=== PATIENT | female | born 1990 | race African-American/Black ===

== ENCOUNTER 2018-01-07 13:55 | Inpatient (IN) | payer OTHER ==
--- NOTE | 2018-01-07 14:19 | PDOC ---
Rapid Medical Evaluation Chief Complaint: Pain Time Seen by Provider: 01/07/18 14:18 Medical Evaluation: Allergies Allergy/AdvReac Type Severity Reaction Status Date / Time No Known Allergies Allergy Verified 01/07/18 14:18 01/07/18 14:18 I have performed a brief in-person evaluation of this patient. The patient presents with a chief complaint of: sent by [facility], ectopic seen on US Pertinent physical exam findings: tendernses to R lower abdomen I have ordered the following: labs, US The patient will proceed to the ED for further evaluation. Discharge Disposition - Diagnosis Ectopic - Referrals Referrals: Tessie Borrego [Primary Care Provider] - - Patient Instructions - Post Discharge Activity
[2018-01-07 14:20] VITALS: BMI 26.1
--- NOTE | 2018-01-07 14:43 | PDOC ---
History of Present Illness <Good Hartman - Last Filed: 01/07/18 21:13> - History of Present Illness Initial Comments: 01/07/18 14:43 27 year old female presents to our ED this afternoon after a TV[facility] at [facility] in [place] showed a possible ectopic . Patient notes her LMP was in early October 2017, however it was only one day so she is uncertain of how her gestational age. Patient has had no care and notes she is supposed to be taking Fe pills for her anemia however she is non- adherent. Patient denies any vaginal bleeding, abdominal cramping, fevers/ chills. Patient states she wishes to have more children. NKDA Surgical Social: current 1/2 ppd, denies alcohol, denies recreational drugs 01/07/18 14:55 01/07/18 15:00 <Michell Narayan - Last Filed: 01/08/18 09:09> - General Chief Complaint: Pain Stated Complaint: SENT BY PCP Time Seen by Provider: 01/07/18 14:18 Past History <Good Hartman - Last Filed: 01/07/18 21:13> - Past Medical History COPD: No - Suicide/Smoking/Psychosocial Hx Smoking History: Former smoker Have you smoked in the past 12 months: Yes If you are a former smoker, when did you quit?: 2018 Information on smoking cessation initiated: No <Michell Narayan - Last Filed: 01/08/18 09:09> - Past Medical History Allergies/Adverse Reactions: Allergies Allergy/AdvReac Type Severity Reaction Status Date / Time No Known Allergies Allergy Verified 01/07/18 14:18 Home Medications: Ambulatory Orders Ibuprofen [Motrin -] 600 mg PO QID #28 tablet 01/08/18 *Physical Exam - Vital Signs Last Vital Signs Temp Pulse Resp BP Pulse Ox 98.2 F 78 18 102/49 98 01/07/18 14:18 01/07/18 21:07 01/07/18 21:07 01/07/18 21:07 01/07/18 21:07 <Good aHrtman - Last Filed: 01/07/18 21:13> - Vital Signs Last Vital Signs Temp Pulse Resp BP Pulse Ox 98.2 F 89 18 125/67 01/07/18 14:18 01/07/18 14:18 01/07/18 14:18 01/07/18 14:18 - Physical Exam Comments: 01/07/18 15:03 GENERAL: Awake, alert, and fully oriented, in no acute distress HEAD: No signs of trauma EYES: PERRLA, EOMI, sclera anicteric, conjunctiva clear ENT: Auricles normal inspection, hearing grossly normal, nares patent, oropharynx clear without exudates. Moist mucosa NECK: Nontender, no stepoffs, Normal ROM, supple, no lymphadenopathy, JVD, or masses LUNGS: Breath sounds equal, clear to auscultation bilaterally. No wheezes, and no crackles HEART: Regular rate and rhythm, normal S1 and S2, no murmurs, rubs or gallops ABDOMEN: Soft, nontender, normoactive bowel sounds. No guarding, no rebound. No masses, fundal height in between pubic symphsis and sub-xiphoid EXTREMITIES: Normal range of motion, no edema. No clubbing or cyanosis. No cords, erythema, or tenderness NEUROLOGICAL: Cranial nerves II through XII intact. 5/5 strength and sensation in all extremities, Normal speech, normal gait, normal cerebellar function SKIN: Warm, Dry, normal turgor, no rashes or lesions noted. <Michell Narayan - Last Filed: 01/08/18 09:09> ED Treatment Course - LABORATORY CBC & Chemistry Diagram: 01/07/18 14:55 01/07/18 14:55 - ADDITIONAL ORDERS Additional order review: Laboratory Results 01/07/18 01/07/18 01/07/18 15:30 14:55 14:55 PT with INR 12.70 H INR 1.12 PTT (Actin FS) 34.1 Sodium Potassium Chloride Carbon Dioxide Anion Gap BUN Creatinine Creat Clearance w eGFR Random Glucose Calcium Total Bilirubin AST ALT Alkaline Phosphatase Total Protein Albumin Beta HCG, Quant 9083.8 Blood Type O POSITIVE Antibody Screen Negative 01/07/18 14:55 PT with INR INR PTT (Actin FS) Sodium 141 Potassium 3.8 Chloride 106 Carbon Dioxide 26 Anion Gap 9 BUN 13 Creatinine 0.6 Creat Clearance w eGFR > 60 Random Glucose 87 Calcium 9.3 Total Bilirubin 0.3 AST 13 L ALT 21 Alkaline Phosphatase 82 Total Protein 7.5 Albumin 4.1 Beta HCG, Quant Blood Type Antibody Screen 01/07/18 14:55 RBC 4.88 MCV 68.5 L MCHC 34.1 RDW 15.3 MPV 8.4 Neutrophils % 62.1 Lymphocytes % 31.2 Monocytes % 5.2 Eosinophils % 1.1 Basophils % 0.4 <Good Hartman - Last Filed: 01/07/18 21:13> - LABORATORY CBC & Chemistry Diagram: 01/08/18 07:30 01/07/18 14:55 <Michell Narayan - Last Filed: 01/08/18 09:09> Medical Decision Making - Medical Decision Making 01/07/18 14:58 27 year old non-toxic appearing female presents with r/o ectopic . At presentation patient hemodynamically stable, no active c/o abdominal pain. Will obtain TVUS, Beta-HCG, UA/Urine culture. Reasess. 01/07/18 14:58 Case d/w SIGH[facility] @ [facility]. patient presented for elective at which time she was noted to have ectopic and sent to the ED. 01/07/18 15:04 U/S images from [facility] reviews, Patient counseled extensively on presumptive ectopic diagnosis. 01/07/18 16:26 B-HCG 9,083.8 c/w 3-5 week . 01/07/18 18:12 Patient resting comfortably. TVUS pending. Patient signed out to Dr. Hartman (Resident) and Dr. Kennedy (Attending) - likely disposition is OR. <Michell Narayan - Last Filed: 01/08/18 09:09> *DC/Admit/Observation/Transfer <Good Hartman - Last Filed: 01/07/18 21:13> <Michell Narayan - Last Filed: 01/08/18 09:09> Diagnosis at time of Disposition: Ectopic Qualifiers: Location of ectopic : unspecified location Intrauterine status: without intrauterine Qualified Code(s): O00.90 - Unspecified ectopic without intrauterine - Discharge Dispostion Condition at time of disposition: Good
[2018-01-07] MEDS ORDERED: ASPIRIN 81 MG CHEWABLE TABLETS PO ONE (15:10)
--- NOTE | 2018-01-07 15:10 | PDOC ---
Attending Attestation - Resident Resident Name: Michell Narayan - ED Attending Attestation I have performed the following: I have examined & evaluated the patient, The case was reviewed & discussed with the resident, I agree w/resident's findings & plan, Exceptions are as noted - HPI HPI: 01/07/18 15:08 27y F [id number], unknown lmp presents from [facility] for ectopic pt was noted to have an US c/w ectopic, had orginally presented for elective ab, but was noted to hav an ectopic. pt is otherwise asyptomatic without abd pain, vag bleeding, n /v, dizziness, palpitations. on exam pt well appearing in no distress abd soft nontender compensation expert exam as documented by dr. kisha zheng obtain lab work beta type tvus if +ectopic will dw compensation expert - Physicial Exam PE: 01/09/18 20:28 see above - Medical Decision Making 01/07/18 19:15 pts beta at 9000 awaiting TVUS will sign out to evening team to reeavluate and disposition
[2018-01-07 15:31] LABS: ALBUMIN 4.1 g/dl (3.4-5.0); ALK PHOS 82 U/L (45-117); ANION GAP 9 (8-16); BILIRUBIN,TOTAL 0.3 mg/dL (0.2-1.0); BLOOD UREA NITROGEN 13 mg/dL (7-18); CALCIUM 9.3 mg/dL (8.5-10.1); CHLORIDE 106 mmol/L (98-107); CO2 26 mmol/L (21-32); CREATININE 0.6 mg/dL (0.55-1.02); GLUCOSE,RANDOM 87 mg/dL (74-106); POTASSIUM 3.8 mmol/L (3.5-5.1); SGOT/AST 13 U/L (15-37); SGPT/ALT 21 U/L (12-78); SODIUM 141 mmol/L (136-145); TOT PROT 7.5 g/dl (6.4-8.2)
[2018-01-07 16:04] LABS: BASO % 0.4 % (0-2.0); EOS % 1.1 % (0-4.5); HEMATOCRIT 33.4 % (32.4-45.2); HEMOGLOBIN 11.4 GM/dL (10.7-15.3); LYMPH % 31.2 % (8-40); MCH 23.3 pg (25.7-33.7); MCHC 34.1 g/dl (32.0-36.0); MEAN CELL VOLUME 68.5 fl (80-96); MEAN PLT VOLUME 8.4 fl (7.5-11.1); MONO % 5.2 % (3.8-10.2); NEUT % 62.1 % (42.8-82.8); PLATELET COUNT 305 K/MM3 (134-434); RBC 4.88 M/mm3 (3.60-5.2); RDW 15.3 % (11.6-15.6); WHITE BLOOD COUNT 9.3 K/mm3 (4.0-10.0)
[2018-01-07 16:11] LABS: INR 1.12 (0.82-1.09); PROTHROMBIN TIME (PATIENT) 12.7 SEC (9.98-11.88)
[2018-01-07 16:13] LABS: ACTIVATED PTT 34.1 SECONDS (26.9-34.4)
--- NOTE | 2018-01-07 19:06 | PDOC ---
*Physical Exam - Vital Signs Last Vital Signs Temp Pulse Resp BP Pulse Ox 98.2 F 89 18 125/67 01/07/18 14:18 01/07/18 14:18 01/07/18 14:18 01/07/18 14:18 ED Treatment Course - LABORATORY CBC & Chemistry Diagram: 01/07/18 14:55 01/07/18 14:55 - ADDITIONAL ORDERS Additional order review: Laboratory Results 01/07/18 01/07/18 01/07/18 15:30 14:55 14:55 PT with INR 12.70 H INR 1.12 PTT (Actin FS) 34.1 Sodium Potassium Chloride Carbon Dioxide Anion Gap BUN Creatinine Creat Clearance w eGFR Random Glucose Calcium Total Bilirubin AST ALT Alkaline Phosphatase Total Protein Albumin Beta HCG, Quant 9083.8 Blood Type O POSITIVE Antibody Screen Negative 01/07/18 14:55 PT with INR INR PTT (Actin FS) Sodium 141 Potassium 3.8 Chloride 106 Carbon Dioxide 26 Anion Gap 9 BUN 13 Creatinine 0.6 Creat Clearance w eGFR > 60 Random Glucose 87 Calcium 9.3 Total Bilirubin 0.3 AST 13 L ALT 21 Alkaline Phosphatase 82 Total Protein 7.5 Albumin 4.1 Beta HCG, Quant Blood Type Antibody Screen 01/07/18 14:55 RBC 4.88 MCV 68.5 L MCHC 34.1 RDW 15.3 MPV 8.4 Neutrophils % 62.1 Lymphocytes % 31.2 Monocytes % 5.2 Eosinophils % 1.1 Basophils % 0.4 Medical Decision Making - Medical Decision Making 01/07/18 19:05 Care taken over from Dr. Narayan. 01/07/18 21:35 Patient found to have viable left ectopic within left adnexa. Dr. Gorman (OB pulmonary fellow) consulted who recommends admission and surgery tonight. Patient amenable. Admitting to Dr. Gorman. *DC/Admit/Observation/Transfer Diagnosis at time of Disposition: Ectopic Qualifiers: Location of ectopic : unspecified location Intrauterine status: without intrauterine Qualified Code(s): O00.90 - Unspecified ectopic without intrauterine - Discharge Dispostion Admit: Yes - Referrals Referrals: Tessie oBrrego [Primary Care Provider] - - Patient Instructions - Post Discharge Activity
[2018-01-07] MEDS ORDERED: PROPOFOL 20 ML ONE ×2 (22:10→22:59)
[2018-01-07] MEDS ORDERED: MIDAZOLAM HCL 2 MG/2 ML SINGLE DOSE VIAL ONE (22:10)
[2018-01-07] MEDS ORDERED: ROCURONIUM BROMIDE 50 MG/5 ML VIAL ONE (22:10)
[2018-01-07] MEDS ORDERED: LIDOCAINE HCL/PF 2% SDV 5ML VIAL ONE (22:11)
--- NOTE | 2018-01-07 22:13 | HP ---
Past Medical History - Primary Care Physician PCP:: Raymon Gorman - Admission Chief Complaint: tubal ectopic History of Present Illness: 27 yo f lmp oct 2016 ,for one day, sxually active on no contraception [facility], sono confirmed ectopic , reffered to ER here , which sono shows live left tube, 5 weeks,with heart present, lapraoscopic salpingectomy discussed , risks of infection, bleeding , injury to surrounding tissue, infertility, postop complication and anesthesia risks discussed, informed consent signed History Source: Patient Limitations to Obtaining History: No Limitations - Past Medical History ...: 4 ...Para: 4 - Past Surgical History Hx Myomectomy: No Hx Transabdominal Cerclage: No - Smoking History Smoking history: Former smoker Have you smoked in the past 12 months: Yes If you are a former smoker, when did you quit?: 2018 - Alcohol/Substance Use Hx Alcohol Use: No History of Substance Use: reports: None - Social History History of Recent Travel: No Home Medications - Allergies Allergies/Adverse Reactions: Allergies Allergy/AdvReac Type Severity Reaction Status Date / Time No Known Allergies Allergy Verified 01/07/18 14:18 Review of Systems - Review of Systems Constitutional: reports: No Symptoms Eyes: reports: No Symptoms HENT: reports: No Symptoms Neck: reports: No Symptoms Cardiovascular: reports: No Symptoms Respiratory: reports: No Symptoms Gastrointestinal: reports: No Symptoms Genitourinary: reports: No Symptoms Breasts: reports: No Symptoms Reported Musculoskeletal: reports: No Symptoms Integumentary: reports: No Symptoms Neurological: reports: No Symptoms Endocrine: reports: No Symptoms Hematology/Lymphatic: reports: No Symptoms Psychiatric: reports: No Symptoms Physical Exam-MEDICAL CLAIMS REPRESENTATIVE Vital Signs: Vital Signs Temperature 98.2 F 01/07/18 14:18 Pulse Rate 78 01/07/18 21:07 Respiratory Rate 18 01/07/18 21:07 Blood Pressure 102/49 01/07/18 21:07 O2 Sat by Pulse Oximetry (%) 98 01/07/18 21:07 Constitutional: Yes: Well Nourished, No Distress, Calm Eyes: Yes: WNL, Conjunctiva Clear, EOM Intact HENT: Yes: WNL, Atraumatic, Normocephalic Neck: Yes: WNL, Supple, Trachea Midline Cardiovascular: Yes: WNL, Regular Rate and Rhythm Respiratory: Yes: WNL, Regular, CTA Bilaterally Gastrointestinal: Yes: WNL ...Rectal Exam: Yes: WNL Renal/: Yes: WNL Vaginal Exam: Yes: Normal Cervix: Yes: Normal Uterus: Yes: Normal Adnexa: Tender: Right Breast(s): Yes: WNL Musculoskeletal: Yes: WNL Extremities: Yes: WNL Edema: No Integumentary: Yes: WNL Neurological: Yes: WNL, Alert, Oriented ...Motor Strength: WNL Psychiatric: Yes: WNL, Alert, Oriented Labs: CBC, BMP 01/07/18 14:55 01/07/18 14:55 Assessment/Plan admi. laparoscopic salpingectomy, D&C discussed , rba explained
[2018-01-07] MEDS ORDERED: KETOROLAC TROMETHAMINE 30 MG/1 ML VIAL ONE (22:14)
[2018-01-07] MEDS ORDERED: ONDANSETRON 4 MG/2 ML VIAL ONE ×2 (22:14→23:41)
[2018-01-07] MEDS ORDERED: DEXAMETHASONE SOD PHOSPHATE 4 MG/1 ML VIAL ONE (22:14)
[2018-01-07] MEDS ORDERED: NEOSTIGMINE METHYLSULFATE 0.5 MG/ML - 10 ML MDV ONE (22:15)
[2018-01-07] MEDS ORDERED: GLYCOPYRROLATE 0.2 MG/1 ML VIAL ONE (22:16)
[2018-01-07] MEDS ORDERED: ONDANSETRON 4 MG/2 ML VIAL IVPUSH PRN (22:28)
[2018-01-07] MEDS ORDERED: LACTATED RINGERS SOLUTION 1,000 ML IV SCH (22:30)
[2018-01-07] MEDS ORDERED: ceFAZolin SODIUM 1 GM VIAL IVPB ONE (22:58)
[2018-01-07] MEDS ORDERED: SODIUM CHLORIDE 0.9% P/F 10 ML VIAL IJ ONE (23:00)
[2018-01-07] MEDS ORDERED: ceFAZolin SODIUM 1 GM VIAL ONE (23:00)
[2018-01-07] MEDS ORDERED: SUCCINYLCHOLINE CHLORIDE 200 MG/10 ML VIAL ONE (23:49)
[2018-01-07] MEDS ORDERED: ACETAMINOPHEN 1000 MG/100 ML VIAL (NON FORMULARY) IVPB ONE (23:58)
[2018-01-08] MEDS ORDERED: ONDANSETRON 4 MG/2 ML VIAL IVPUSH PRN (00:01)
[2018-01-08] MEDS ORDERED: IBUPROFEN 800 MG/8 ML IJ IVPB PRN (00:01)
[2018-01-08] MEDS ORDERED: oxyCODONE HCL 5 MG TABLET PO PRN (00:01)
[2018-01-08] MEDS ORDERED: IBUPROFEN 600 MG TABLET (FP) PO PRN (00:01)
[2018-01-08] MEDS ORDERED: ACETAMINOPHEN INJECTION 100 ML IVPB ONE (00:06)
[2018-01-08] MEDS ORDERED: ELECTROLYTE-148 SOLN 1,000 ML IV SCH (00:15)
--- NOTE | 2018-01-08 01:02 | OP ---
DATE OF OPERATION: 01/07/2018 PREOPERATIVE DIAGNOSIS: Left tubal ectopic . POSTOPERATIVE DIAGNOSIS: Left tubal ectopic . Pelvic adhesions. SURGEON: Raymon Gorman M.D. HEARSE DRIVER: Castillo Sweet ANESTHESIA: General. ANESTHESIOLOGIST: ESTIMATED BLOOD LOSS: 20 mL. OPERATION: Patient was taken to operating room and placed in dorsal lithotomy position. Examination under anesthesia revealed external genitalia to be normal. Vagina was normal. Cervix was closed. No lesion. Uterus normal size. Adnexa no masses palpable. Then with the weighted speculum in the vagina, anterior lip of cervix of grasped single loop tenaculum. Uterine cavity was sounded to 8 cm. Cervix was slightly dilated with Hegar dilator, and then uterine cavity was curetted in ordinary fashion with the smooth curet. Small amount of tissue was obtained. Then Hulka was introduced into the uterine cavity and then Doan was inserted. Patient was prepped and draped for endoscopy in dorsal lithotomy position. A small infraumbilical skin incision was made. Veress needle was introduced. No peritoneum was established. A 5-mm trocar was introduced under direct vision, then pneumoperitoneum was established, and 5-mm trocar was reintroduced to the right hypogastric area and then 10 mm to the left hypogastric. Visualization of the upper abdomen showed multiple adhesion bands between the diaphragm and the liver consistent with previous old PID. There was also some bowel adhesions in the right side adherent to the broad ligament. The right tube and ovary were normal. Left ovary was normal. The left tube was curled up behind the user with the large ectopic , adherent to the posterior part of the uterus. Pelvic area several times irrigated and suctioned, and then the tube was dissected from the posterior wall of the uterus with Ligasure bipolar cautery, and then along the mesosalpinx the tube was grasped and cauterized and removed. The ectopic had occupied the whole tube. Then no active bleeding was seen at the site of the procedure, and Endocatch was introduced through the 10-mm trocar and the specimen was removed. Then pelvic cavity began irrigation, no bleeding was seen. A 10-mm trocar was removed, and then the fascia was brought together with an interrupted suture of 0 Vicryl, and then the subcutaneous fat with interrupted suture of the 2-0 Vicryl, and umbilical area was closed with 2-0 Vicryl, and skin was closed with 4-0 Biosyn interrupted mattress suture. Patient tolerated procedure well, left the OR in good condition. Berna [id number]
[2018-01-08 05:56] VITALS: TEMP 98.4
[2018-01-08 08:00] LABS: HEMATOCRIT 32.6 % (32.4-45.2); HEMOGLOBIN 10.9 GM/dL (10.7-15.3); MCH 22.8 pg (25.7-33.7); MCHC 33.4 g/dl (32.0-36.0); MEAN CELL VOLUME 68.2 fl (80-96); MEAN PLT VOLUME 8.4 fl (7.5-11.1); PLATELET COUNT 284 K/MM3 (134-434); RBC 4.78 M/mm3 (3.60-5.2); RDW 15.6 % (11.6-15.6); WHITE BLOOD COUNT 9.9 K/mm3 (4.0-10.0)
--- NOTE | 2018-01-08 08:10 | PN ---
Progress Note (short form) - Note Progress Note: pod 0 , s/p LT salpingectomy, has mild incisional pain CBC, BMP 01/07/18 14:55 Last Vital Signs Temp Pulse Resp BP Pulse Ox 98.4 F 72 18 118/79 99 01/08/18 05:56 01/08/18 05:56 01/08/18 05:56 01/08/18 05:56 01/08/18 02:15 abdomen soft, no distension, no cva incisions dry, rebecca no vaginal bleeding plan d/c home , rtc 2 weeks
--- NOTE | 2018-01-08 09:24 | PN ---
Progress Note (short form) - Note Progress Note: ANESTEHESIOLOGY POST-OP CHECK 27F s/p lap salpingectomy POD #1. No complaints. pain 4/10 and tolerable. Denies N/V. Vital Signs Temperature 98.4 F 01/08/18 05:56 Pulse Rate 72 01/08/18 05:56 Respiratory Rate 18 01/08/18 05:56 Blood Pressure 118/79 01/08/18 05:56 O2 Sat by Pulse Oximetry (%) 99 01/08/18 02:15 Active Medications Parenteral Electrolytes (Plasma-Lyte 148 -) 1,000 mls @ 125 mls/hr IV ASDIR ELIAN Last Admin: 01/08/18 00:34 Dose: 125 mls/hr Ibuprofen (Motrin -) 600 mg PO Q6H PRN PRN Reason: FEVER Ibuprofen (Caldolor Injection -) 800 mg IVPB Q6H PRN PRN Reason: PAIN LEVEL 1-5 Last Admin: 01/08/18 01:49 Dose: 800 mg Ondansetron HCl (Zofran Injection) 4 mg IVPUSH Q6H PRN PRN Reason: NAUSEA AND/OR VOMITING Ondansetron HCl (Zofran Injection) 4 mg IVPUSH Q6H PRN PRN Reason: NAUSEA Oxycodone HCl (Roxicodone -) 10 mg PO Q4H PRN PRN Reason: PAIN LEVEL 6-10 Gen: Awake, alert, NAD No apparent anesthesia complications. Continue TROPHY ASSEMBLER until fully tolerating PO diet. To see Dr Bucio. Continue management as per primary team.
[2018-01-08 10:48] VITALS: BP 127/72; PULSE 83
--- NOTE | 2018-01-11 10:42 | PATH ---
Surgical Pathology Report Patient Name: BETTY MCKEON [facility]. Rec. #: [id number] /Age/Gender: 1990 (Age: 27) / F Account: [id number] Location: [facility] OBS/RD SCIENTIST Taken: 01/07/2018 Received: 01/08/2018 Reported: 01/11/2018 Physicians: Raymon Gorman M.D. Specimen(s) Received A: ENDOMETRIAL CURETTINGS B: LEFT FALLOPIAN TUBE Clinical History Ectopic Final Diagnosis A. ENDOMETRIAL CURETTINGS, DILATION AND CURETTAGE: GESTATIONAL ENDOMETRIUM. B. FALLOPIAN TUBE, LEFT, LAPAROSCOPIC SALPINGECTOMY: CHORIONIC VILLI IN A BACKGROUND OF HEMORRHAGE PRESENT WITHIN THE FALLOPIAN TUBE, CONSISTENT WITH ECTOPIC . Electronically Signed Jocelyn West M.D. Gross Description A. Received in formalin labelled "endometrial curetting" is a 2.5 x 2.5 x 0.7 cm aggregate of hemorrhagic and mucinous material. Totally submitted in 2 cassettes. B. Received in formalin labelled "left fallopian tube" is a 5 cm long by up to 2.2 cm in diameter portion of fallopian tube. Cut surface reveals an apparent gestational sac measuring 2.0 cm greatest dimension, is consistent with ectopic . A veterans service representative section is submitted one cassette. [facility]/01/08/2018 [facility]/01/08/2018
== END 2018-01-08 13:20 | disposition home or self-care (01) | DRG 545 ==
LOC: JER 13:55 → JERBED 21:40 → J3W 01-08 00:30
PROVIDERS: ADMIT Obstetrics & Gynecology; ATTEND Obstetrics & Gynecology
PROC: 0FN04ZZ Release Liver, Percutaneous Endoscopic Approach (ICD-10-PCS; 2018-01-07)
PROC: 10T24ZZ Resection of Products of Conception, Ectopic, Percutaneous Endoscopic Approach (ICD-10-PCS; principal; 2018-01-07 10:00)
PROC: 0UT64ZZ Resection of Left Fallopian Tube, Percutaneous Endoscopic Approach (ICD-10-PCS; 2018-01-07 22:45)
DX: O00.102 Left tubal pregnancy without intrauterine pregnancy (principal); D64.9 Anemia, unspecified; F17.210 Nicotine dependence, cigarettes, uncomplicated; N73.6 Female pelvic peritoneal adhesions (postinfective); Z3A.01 Less than 8 weeks gestation of pregnancy
CPT/HCPCS: 36415; 76817-TC; 80053; 84702; 85025; 85027; 85610; 85730; 86850; 86900; 86901; 88305-TC; 99282-25; J0131

== ENCOUNTER → 2018-04-25 | Emergency (ER) | payer OTHER ==
[~2018-04-25] MED LIST: FLUCONAZOLE 100 MG TABLET (UD) ONE; FLUCONAZOLE 100 MG TABLET (UD) PO ONE; NAPROXEN 375 MG TABLET (FP) PO ONE; NAPROXEN 500 MG TABLET (FP) ONE; SUMAtriptan SUCCINATE 50 MG TABLET ONE; SUMAtriptan SUCCINATE 50 MG TABLET PO SCH
[2018-04-25 22:15] VITALS: BP 142/78; PULSE 74; TEMP 98.2; BMI 28.7
--- NOTE | 2018-04-26 00:11 | PDOC ---
History of Present Illness - General Chief Complaint: Headache Stated Complaint: DIZZNESS, WEAK Time Seen by Provider: 04/25/18 23:27 History Source: Patient Exam Limitations: No Limitations - History of Present Illness Initial Comments: 04/25/18 23:50 28F with pmh of ectyopic in December 2017 presents with left sided frontal and temporal headache for the past month. Relief with motrin and tylenol but still has the headaches every day, day or night. Light is hurting her eyes. No history of migraines. Last menstrual period April 11. Pain is relieved by massaging the area. 04/26/18 00:16 Denies nausea, vomiting Past History - Past Medical History Allergies/Adverse Reactions: Allergies Allergy/AdvReac Type Severity Reaction Status Date / Time No Known Allergies Allergy Verified 01/07/18 14:18 Home Medications: Ambulatory Orders Ibuprofen [Motrin -] 600 mg PO QID #28 tablet 01/08/18 Sumatriptan Succ/Naproxen Sod [Sumatriptan-Naproxen 85-500 mg] 1 each PO PRN PRN #30 tablet MDD 2 tabs 04/26/18 Anemia: No Asthma: No Cancer: No Cardiac Disorders: No CVA: No COPD: No DVT: No Dementia: No Diabetes: No GI Disorders: No Disorders: Yes (ectopic ) HTN: No Seizures: No Thyroid Disease: No - Surgical History Abdominal Surgery: Yes (Salpingectomy) - Reproductive History (#): 4 Para: 4 - Suicide/Smoking/Psychosocial Hx Smoking History: Never smoked Have you smoked in the past 12 months: Yes Number of Cigarettes Smoked Daily: 2 If you are a former smoker, when did you quit?: 2018 Information on smoking cessation initiated: Yes 'Breaking Loose' booklet given: 04/25/18 Hx Alcohol Use: No Drug/Substance Use Hx: No Substance Use Type: None Review of Systems - Review of Systems Able to Perform ROS?: Yes Is the patient limited Maori proficient: No Constitutional: No: Symptoms Reported HEENTM: Yes: Blurred Vision, Recent change in vision Respiratory: No: Symptoms reported Cardiac (ROS): No: Symptoms Reported ABD/GI: No: Symptoms Reported : No: Symptoms Reported Musculoskeletal: No: Symptoms Reported Integumentary: No: Symptoms Reported Neurological: No: Symptoms reported Endocrine: No: Symptoms Reported Hematologic/Lymphatic: No: Symptoms Reported All Other Systems: Reviewed and Negative *Physical Exam - Vital Signs Last Vital Signs Temp Pulse Resp BP Pulse Ox 98.2 F 74 20 142/78 99 04/25/18 22:12 04/25/18 22:12 04/25/18 22:12 04/25/18 22:12 04/25/18 22:12 - Physical Exam General Appearance: Yes: Nourished, Appropriately Dressed. No: Apparent Distress HEENT: positive: EOMI, ANGELIKA, Normal ENT Inspection Respiratory/Chest: positive: Lungs Clear, Normal Breath Sounds. negative: Chest Tender, Respiratory Distress Cardiovascular: positive: Regular Rhythm, Regular Rate, S1, S2 Gastrointestinal/Abdominal: positive: Normal Bowel Sounds, Flat, Soft. negative : Tender Musculoskeletal: positive: Normal Inspection. negative: CVA Tenderness Medical Decision Making - Medical Decision Making 04/26/18 00:15 Will give Naproxen-Sumatriptan and check UA, Upreg. This is likely new onset migraine 04/26/18 01:23 Feels much better with naproxen-sumatriptan combo. Will dc with script and neuro follow up *DC/Admit/Observation/Transfer Diagnosis at time of Disposition: Migraine - Discharge Dispostion Disposition: HOME Condition at time of disposition: Improved Decision to Admit order: No - Referrals Referrals: Alix Nunez MD [Primary Care Provider] - Josafat Cheatham MD [Staff Physician] - - Patient Instructions Printed Discharge Instructions: Frovatriptan May Offer Relief From Migraine Pain, DI for Migraine Additional Instructions: Follow up with your primary care provider within 2-3 days Come back to the Er for any new, worsening or concerning symptom. Follow up with Dr. Barrios, Neurologist if symptoms persist. production supervisor trainee prescription at your pharmacy and take as directed. - Post Discharge Activity
--- NOTE | 2018-04-26 00:12 | PDOC ---
Attending Attestation - HPI HPI: The patient is a 28 year old female, with a significant PMH of ectopic in December 2017, who presents to the emergency department complaining of intermittent headaches that began approximately 4 weeks ago. The patient states she was driving today when she suddenly experienced photophobia accompanied with tingling to her left hand and dizziness. The patient states she has been having these symptoms for the past 4 weeks and came to the ER for further evaluation. The patient denies chest pain, shortness of breath. Denies fever, chills, nausea, vomit, diarrhea and constipation. Denies dysuria, frequency, urgency and hematuria. Allergies: NKDA Past surgical history: Former smoker (quit in 2018). Denies alcohol and recreational drug use. Social history: None reported PCP:Jenny Nunez Documentation prepared by Gato Shultz, acting as lpn or medical assistant for Lucille Bustamante MD. <Gato Shultz - Last Filed: 04/26/18 01:25> - Resident Resident Name: Rob Kan - ED Attending Attestation I have performed the following: I have examined & evaluated the patient, The case was reviewed & discussed with the resident, I agree w/resident's findings & plan, Exceptions are as noted - HPI HPI: 04/26/18 00:12 28-year-old female presents with 4 weeks of intermittent headaches. She has taken Tylenol and Motrin for headaches. States the nausea is better. - Physicial Exam PE: 04/26/18 01:35 Well-nourished, well-developed 28-year-old female who presents with complaints of vaginal discharge, intermittent headaches times one month, and she had some photophobia today with headache and Head normocephalic/atraumatic. Eyes pupils equal and reactive to light and accommodation, extraocular movements intact. Neck no bruits, no JVD, supple. CVS regular rate and rhythm S1, S2 Lungs clear to auscultation bilaterally Abdomen soft, nontender, nondistended. Extremities full range of motion, no deformity, no tenderness. +candidal infection Skin is warm and dry. Neuro alert and oriented 3, ambulating with ease, no ataxia, no facial droop, no slurred speech - Medical Decision Making 04/26/18 01:50 Headache resolved with medications. She had a complaint of vaginal discharge. Pelvic was done by Dr. Kan and she was found to have vaginal candidiasis which was treated with Diflucan [place] patient already has an appointment on March 28 with her physician for follow- up. She was given a referral to neurology in case her headaches are persistent <Lucille Bustamante - Last Filed: 04/26/18 01:51>
[2018-04-26 00:59] LABS: URINE APPEARANCE CLEAR; URINE BILIRUBIN NEGATIVE (<2.0 mg/dL); URINE COLOR LTYELLOW; URINE GLUCOSE (UA) NEGATIVE (NEGATIVE); URINE KETONE NEGATIVE (NEGATIVE); URINE NITRITE NEGATIVE (NEGATIVE); URINE PROTEIN NEGATIVE (NEGATIVE); URINE UROBILINOGEN NEGATIVE mg/dL (0.2-1.0)
[2018-04-26 01:07] LABS: HCG,QUALITATIVE URINE NEGATIVE; URINE LEUK ESTERASE 2+ (NEGATIVE)
[2018-04-26 01:12] LABS: EPI CELLS RARE /HPF (FEW); URINE MUCUS RARE
== END | disposition home or self-care (01) ==
LOC: JER 22:01
DX: G43.909 Migraine, unspecified, not intractable, without status migrainosus (principal)
CPT/HCPCS: 81003; 81015; 84703; 99281-25

== ENCOUNTER 2018-06-23 22:06 | Emergency (ER) | payer OTHER ==
[2018-06-23 22:11] VITALS: BP 124/88; PULSE 78; TEMP 98; BMI 26.1
--- NOTE | 2018-06-23 23:32 | PDOC ---
Attending Attestation - HPI HPI: 06/24/18 00:45 The patient is a 28-year-old female with past medical history significant for depression, and Ectopic (L. side December 2017) presents to the emergency department with abdominal pain and emesis. The patient reports pain to the R. flank region that radiates to the R. lower abdominal region, which presented a day prior. The patient reports her last drink prior to the episode was a azucena rene, following she went to sleep. The patient states when she woke up she went to the bathroom for a bowel movement, but she ended up having an episode of nonbilious-bloody vomiting. The patient reports her last bowel movement was earlier today, denies melena or hematochezia. Denies any vaginal bleeding. Denies the use of control. The patient reports prior to the ectopic, she didnt have any pain or vaginal bleeding. Allergies: NKA Social history: The patient reports having sexual intercourse with her partner, without the use of condom. The use of tobacco is reported. No alcohol or recreational drug use reported. LMP: 05/29/2018. The patient reports since January shes been having regular cycle. Surgical history: (Salpingectomy) FRONT MAKER: [facility] - Physicial Exam PE: 06/24/18 00:46 GENERAL: Awake, alert, and fully oriented, in no acute distress HEAD: No signs of trauma EYES: PERRLA, EOMI, sclera anicteric, conjunctiva clear ENT: Auricles normal inspection, hearing grossly normal, nares patent, oropharynx clear without exudates. Moist mucosa NECK: Normal ROM, supple, no lymphadenopathy, JVD, or masses LUNGS: Breath sounds equal, clear to auscultation bilaterally. No wheezes, and no crackles HEART: Regular rate and rhythm, normal S1 and S2, no murmurs, rubs or gallops ABDOMEN: Soft, nontender, no CVA, normoactive bowel sounds. No guarding, no rebound. No masses EXTREMITIES: Normal range of motion, no edema. No clubbing or cyanosis. No cords, erythema, or tenderness NEUROLOGICAL: Cranial nerves II through XII grossly intact. Normal speech, ambulated with a steady gait. SKIN: Warm, Dry, normal turgor, no rashes or lesions noted. - Medical Decision Making 06/24/18 00:46 Documentation prepared by Ro Will, acting as medical coordinator pesticide use for Hortencia Gordon DO. <Ro Solis - Last Filed: 06/24/18 00:46> - Resident Resident Name: Vicky Rodriguez - ED Attending Attestation I have performed the following: I have examined & evaluated the patient, The case was reviewed & discussed with the resident, I agree w/resident's findings & plan, Exceptions are as noted - Medical Decision Making 06/23/18 23:32 I, Dr. Hortencia Gordon DO, attest that this document has been prepared under my direction and personally reviewed by me in its entirety. I further attest, that it accurately reflects all work, treatment, procedures and medical decision -making performed by me. 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 pt stable for dc to home with expectant management. n/v resolved. pt feeling better <Hortencia Gordon - Last Filed: 06/24/18 02:19>
--- NOTE | 2018-06-23 23:34 | PDOC ---
History of Present Illness - General Chief Complaint: Pain Stated Complaint: abdominal pain with nausea & vomiting Time Seen by Provider: 06/23/18 23:28 History Source: Patient Exam Limitations: No Limitations - History of Present Illness Initial Comments: 28yo F with depression and previous ectopic in December 2017 presenting with abdominal pain x 1 day. The pain is intermittent, rated 8/10, and described as sharp. Patient endorses a normal appetite, and the pain is worsened with eating and relieved by vomiting. She reports 4 episodes of NBNB vomit. LMP was 8/2, patient does not use any contraception. Previous surgeries includes removal of the ectopic in December. Last bowel movement was earlier today and was a normal formed, brown stool. No history of kidney stones or gallstones. No fever, chills, chest pain, or shortness of breath. 06/24/18 00:15 Past History - Past Medical History Allergies/Adverse Reactions: Allergies Allergy/AdvReac Type Severity Reaction Status Date / Time No Known Allergies Allergy Verified 06/23/18 22:11 Home Medications: Ambulatory Orders Ibuprofen [Motrin -] 600 mg PO QID #28 tablet 01/08/18 Sumatriptan Succ/Naproxen Sod [Sumatriptan-Naproxen 85-500 mg] 1 each PO PRN PRN #30 tablet MDD 2 tabs 04/26/18 Ondansetron [Zofran Odt -] 4 mg SL BID #14 od.tablet 06/24/18 Anemia: No Asthma: No Cancer: No Cardiac Disorders: No CVA: No COPD: No DVT: No Dementia: No Diabetes: No GI Disorders: No Disorders: Yes (ectopic ) HTN: No Seizures: No Thyroid Disease: No - Surgical History Abdominal Surgery: Yes (Salpingectomy) - Reproductive History (#): 4 Para: 4 - Suicide/Smoking/Psychosocial Hx Smoking History: Never smoked Have you smoked in the past 12 months: No Number of Cigarettes Smoked Daily: 2 If you are a former smoker, when did you quit?: 2018 Information on smoking cessation initiated: No 'Breaking Loose' booklet given: 04/25/18 Hx Alcohol Use: No Drug/Substance Use Hx: No Substance Use Type: None Review of Systems - Review of Systems Comments:: Constitutional: no fever, no chills Cardiovascular: no chest pain, no palpitations Respiratory: no cough, no shortness of breath Gastrointestinal: +abdominal pain, +nausea, +vomiting, no diarrhea, no constipation Genitourinary: no dysuria, no frequency Musculoskeletal: no myalgia, no arthralgia Skin: no rash, no itching Neurologic: no headache, no dizziness *Physical Exam - Vital Signs Last Vital Signs Temp Pulse Resp BP Pulse Ox 98.0 F 78 16 124/88 99 06/23/18 22:09 06/23/18 22:09 06/23/18 22:09 06/23/18 22:09 06/23/18 22:09 - Physical Exam Comments: General: Awake, alert, and fully oriented, in no acute distress Head: no signs of trauma Eyes: EOMI, sclera anicteric ENT: moist mucus membranes, Neck: Normal ROM, supple Lungs: Lungs clear, Normal breath sounds Cardio: Regular rhythm, S1 and S2 present Abdomen: Tender to palpation on RLQ with slight rebound; soft; normal bowel sounds. No guarding, no masses Extremities: Normal range of motion, Distal pulses present. SKIN: Warm, Dry, normal turgor Neurologic: Cranial nerves II through XII grossly intact. Normal speech ED Treatment Course - LABORATORY CBC & Chemistry Diagram: 06/24/18 00:52 06/24/18 00:52 Medical Decision Making - Medical Decision Making 28yo F with abdominal pain. LMP 04/29/18, patient likely . TVUS ordered. 06/24/18 02:11 Ultrasound shows IUP with no heart rate, likely demise. Explained to patient that she is likely having a miscarriage. Will discharge with return precautions and expectant management. She will follow-up with electrical tech/project manager in two days. *DC/Admit/Observation/Transfer Diagnosis at time of Disposition: Abdominal pain - Discharge Dispostion Disposition: HOME Condition at time of disposition: Stable - Prescriptions Prescriptions: Ondansetron [Zofran Odt -] 4 mg SL BID #14 od.tablet - Referrals Referrals: Dot Ogden MD [Staff Physician] - - Patient Instructions Printed Discharge Instructions: DI for Miscarriage Additional Instructions: You were seen in the ED for abdominal pain. You are likely having a miscarriage. Follow-up with electrical tech/project manager in the next 2-3 days. You are being referred to an electrical tech/project manager doctor: Dr. Ogden [phone] Call and make an appointment. RETURN if: you experience excessive bleeding (more than two pads per hour for two hours), lightheadedness, shortness of breath, fevers, severe pain, or any new or concerning symptoms. - Post Discharge Activity
[2018-06-24] MEDS ORDERED: ONDANSETRON 4 MG/2 ML VIAL IVPUSH ONE (00:12)
[2018-06-24] MEDS ORDERED: SODIUM CHLORIDE 1,000 ML IV STA (00:12)
[2018-06-24] MEDS ORDERED: ONDANSETRON 4 MG/2 ML VIAL ONE (00:58)
[2018-06-24 01:05] LABS: BASO % 0.5 % (0-2.0); EOS % 1.3 % (0-4.5); HEMATOCRIT 34.7 % (32.4-45.2); HEMOGLOBIN 11.4 GM/dL (10.7-15.3); MCHC 32.8 g/dl (32.0-36.0); MEAN CELL VOLUME 67.1 fl (80-96); MEAN PLT VOLUME 8.1 fl (7.5-11.1); MONO % 5.5 % (3.8-10.2); NEUT % 56.7 % (42.8-82.8); PLATELET COUNT 322 K/MM3 (134-434); RBC 5.17 M/mm3 (3.60-5.2); RDW 15.2 % (11.6-15.6); URINE APPEARANCE CLEAR; URINE BILIRUBIN NEGATIVE (<2.0 mg/dL); URINE COLOR YELLOW; URINE GLUCOSE (UA) NEGATIVE (NEGATIVE); URINE KETONE NEGATIVE (NEGATIVE); URINE LEUK ESTERASE NEGATIVE (NEGATIVE); URINE NITRITE NEGATIVE (NEGATIVE); URINE PROTEIN NEGATIVE (NEGATIVE); URINE UROBILINOGEN 4.0 E.U/dl mg/dL (0.2-1.0); WHITE BLOOD COUNT 9.6 K/mm3 (4.0-10.0)
[2018-06-24 01:52] LABS: ALBUMIN 3.9 g/dl (3.4-5.0); ALK PHOS 88 U/L (45-117); ANION GAP 7 MMOL/L (8-16); BILIRUBIN,TOTAL 0.4 mg/dL (0.2-1); BLOOD UREA NITROGEN 16 mg/dL (7-18); CALCIUM 8.6 mg/dL (8.5-10.1); CHLORIDE 106 mmol/L (98-107); CO2 26 mmol/L (21-32); CREATININE 0.6 mg/dL (0.55-1.3); GLUCOSE,RANDOM 93 mg/dL (74-106); LIPASE 79 U/L (73-393); POTASSIUM 3.9 mmol/L (3.5-5.1); SGOT/AST 124 U/L (15-37); SGPT/ALT 130 U/L (13-61); SODIUM 139 mmol/L (136-145); TOT PROT 7.6 g/dl (6.4-8.2)
[2018-06-24 06:04] LABS: ANISOCYTOSIS 1+
[2018-06-24 06:05] LABS: PLATELET ESTIMATE ADEQUATE
== END 2018-06-24 02:20 | disposition home or self-care (01) ==
LOC: JER 22:06
PROC: 3E0337Z Introduction of Electrolytic and Water Balance Substance into Peripheral Vein, Percutaneous Approach (ICD-10-PCS; principal; 2018-06-23)
PROC: 3E033GC Introduction of Other Therapeutic Substance into Peripheral Vein, Percutaneous Approach (ICD-10-PCS; 2018-06-23)
DX: O26.891 Other specified pregnancy related conditions, first trimester (principal); R10.30 Lower abdominal pain, unspecified; Z3A.01 Less than 8 weeks gestation of pregnancy
CPT/HCPCS: 36415; 76817-TC; 80053; 81003; 83690; 84702; 85025; 87086; 99282-25; J7030

== ENCOUNTER 2020-03-29 21:58 | Inpatient (IN) | payer OTHER ==
[2020-03-29 22:07] VITALS: BMI 32.0
--- NOTE | 2020-03-29 23:16 | PDOC ---
History of Present Illness - General Chief Complaint: Headache Stated Complaint: HEADACHE Time Seen by Provider: 03/29/20 22:53 - History of Present Illness Initial Comments: Shelia Simental is a 30 y/o female with PMH significant for pre-DM, presenting today with headache. Reports that she has had global tension like headaches in the past before that are typically improved with Tylenol and aspirin. Reports that the present headache has been going on for the past three days and has worsened today. Describes today's headache as new, right sided retro orbital, with right paraspinal radiation. Reports jaw claudication. No fever/chills. No nausea/vomiting. Reports photophobia and phonophobia worse on the right side. Reports transient blurry vision. Past History - Medical History Allergies/Adverse Reactions: Allergies Allergy/AdvReac Type Severity Reaction Status Date / Time No Known Allergies Allergy Verified 03/29/20 22:02 Home Medications: Ambulatory Orders Ibuprofen [Motrin -] 600 mg PO QID #28 tablet 01/08/18 Sumatriptan Succ/Naproxen Sod [Sumatriptan-Naproxen 85-500 mg] 1 each PO PRN PRN #30 tablet MDD 2 tabs 04/26/18 Ondansetron [Zofran Odt -] 4 mg SL BID #14 od.tablet 06/24/18 Anemia: No Asthma: No Cancer: No Cardiac Disorders: No CVA: No COPD: No DVT: No Dementia: No Diabetes: No GI Disorders: No Disorders: Yes (ectopic ) HTN: No Seizures: No Thyroid Disease: No - Surgical History Abdominal Surgery: Yes (Salpingectomy) - Reproductive History (#): 4 Para: 4 - Psycho-Social/Smoking History Smoking History: Never smoked Have you smoked in the past 12 months: No Number of Cigarettes Smoked Daily: 2 If you are a former smoker, when did you quit?: 2018 'Breaking Loose' booklet given: 04/25/18 - Substance Abuse Hx (Audit-C & DAST Scrn) How often the patient has a drink containing alcohol: Never Score: In Men: 4 or > Positive; In Women: 3 or > Positive: 0 Screen Result (Pos requires Nsg. Audit-10AR): Negative In the last yr the pt used illegal drug/Rx for NonMed reason: No Score: Yes response is considered Positive: 0 Screen Result (Positive result requires Nsg. DAST-10): Negative Review of Systems - Review of Systems Comments:: GENERAL/CONSTITUTIONAL: No fever or chills. No weakness._ HEAD, EYES, EARS, NOSE AND THROAT: No change in vision. No change in hearing. No sore throat._ CARDIOVASCULAR: No chest pain or shortness of breath_ RESPIRATORY: Denies cough, hemoptysis_ GASTROINTESTINAL: No nausea, vomiting, diarrhea or constipation._ GENITOURINARY: No dysuria, frequency, or change in urination._ MUSCULOSKELETAL: No joint or muscle swelling or pain. No neck or back pain._ SKIN: No rash_ NEUROLOGIC: Reports headache. No vertigo, loss of consciousness, or change in strength/sensation._ ENDOCRINE: No increased thirst. No abnormal weight change_ HEMATOLOGIC/LYMPHATIC: No anemia, easy bleeding, or history of blood clots._ ALLERGIC/IMMUNOLOGIC: No hives or skin allergy._ *Physical Exam - Vital Signs Last Vital Signs Temp Pulse Resp BP Pulse Ox 98.1 F 95 H 18 131/80 98 03/29/20 22:00 03/29/20 22:00 03/29/20 22:00 03/29/20 22:00 03/29/20 22:00 - Physical Exam GENERAL: Awake, alert, and oriented to person/place/time, in no acute distress_ HEAD: No signs of trauma, normocephalic, atraumatic _ EYES: PERRLA, EOMI, sclera anicteric, conjunctiva clear_ ENT: Hearing grossly normal, nares patent, oropharynx clear without exudates. No uvular deviation. Moist mucosa_ NECK: Normal ROM, supple, no lymphadenopathy, JVD, or masses_ LUNGS: No distress, speaks in full sentences, clear to auscultation bilaterally _ HEART: Regular rate and rhythm, normal S1 and S2, no murmurs appreciated, peripheral pulses normal and equal bilaterally._ ABDOMEN: Soft, nontender, normoactive bowel sounds. No guarding, no rebound. No masses_ EXTREMITIES: Normal inspection, Normal range of motion, no edema. No clubbing or cyanosis_ NEUROLOGICAL: Mental status: A/Ox3 CN II-XII tested and intact. Sensation intact to sharp/dull differentiation in all extremities. Motor: Normal tone and bulk. No abnormal movements appreciated. No pronator drift. Strength tested and 5/5 in bilateral wrist flexion/extension, elbow flexion/extension, shoulder abduction, straight leg raise, knee flexion/extension, ankle dorsiflexion/plantarflexion. Patient ambulates with a steady gait. Coordination: Finger to nose and heel to krishnamurthy testing intact bilaterally. SKIN: Warm, Dry, normal turgor, no rashes or lesions noted_ ED Treatment Course - LABORATORY CBC & Chemistry Diagram: 03/29/20 23:40 03/29/20 23:40 Medical Decision Making - Medical Decision Making 03/29/20 23:48 30F hx of pre-DM, presenting today with worsening right sided headache with retro-orbital pain and right paraspinal neck pain. No focal neuro findings. -cbc, cmp -serum preg -reglan, fluids, tylenol -O2 -CT head -pocus ocular POCUS ocular shows no globe rupture, optic nerve wnl, no obvious retina detachment. 03/30/20 03:03 CT head shows no acute intracranial pathology. Labs reviewed. Laboratory Last Values WBC 9.9 K/mm3 (4.0-10.0) 03/29/20 23:40 RBC 5.28 M/mm3 (3.60-5.2) H 03/29/20 23:40 Hgb 12.0 GM/dL (10.7-15.3) 03/29/20 23:40 Hct 35.9 % (32.4-45.2) 03/29/20 23:40 MCV 67.9 fl (80-96) L 03/29/20 23:40 MCH 22.8 pg (25.7-33.7) L 03/29/20 23:40 MCHC 33.6 g/dl (32.0-36.0) 03/29/20 23:40 RDW 16.1 % (11.6-15.6) H 03/29/20 23:40 Plt Count 319 K/MM3 (134-434) 03/29/20 23:40 MPV 8.6 fl (7.5-11.1) 03/29/20 23:40 Absolute Neuts (auto) 4.9 K/mm3 (1.5-8.0) 03/29/20 23:40 Neutrophils % 49.5 % (42.8-82.8) 03/29/20 23:40 Lymphocytes % 42.3 % (8-40) H 03/29/20 23:40 Monocytes % 4.1 % (3.8-10.2) 03/29/20 23:40 Eosinophils % 3.2 % (0-4.5) D 03/29/20 23:40 Basophils % 0.9 % (0-2.0) 03/29/20 23:40 Nucleated RBC % 0 % (0-0) 03/29/20 23:40 ESR 18 mm/hr (0-20) 03/30/20 00:01 PT with INR 12.30 SEC (9.7-13.0) 03/30/20 00:01 INR 1.04 (0.83-1.09) 03/30/20 00:01 PTT (Actin FS) 33.5 SECONDS (25.2-36.5) 03/30/20 00:01 Sodium 141 mmol/L (136-145) 03/29/20 23:40 Potassium 3.7 mmol/L (3.5-5.1) 03/29/20 23:40 Chloride 108 mmol/L (98-107) H 03/29/20 23:40 Carbon Dioxide 26 mmol/L (21-32) 03/29/20 23:40 Anion Gap 6 MMOL/L (8-16) L 03/29/20 23:40 BUN 20.0 mg/dL (7-18) H 03/29/20 23:40 Creatinine 0.9 mg/dL (0.55-1.3) 03/29/20 23:40 Est GFR (CKD-EPI)AfAm 98.75 03/29/20 23:40 Est GFR (CKD-EPI)NonAf 85.20 03/29/20 23:40 Random Glucose 116 mg/dL (74-106) H 03/29/20 23:40 Calcium 9.0 mg/dL (8.5-10.1) 03/29/20 23:40 Total Bilirubin 0.2 mg/dL (0.2-1) 03/29/20 23:40 AST 17 U/L (15-37) 03/29/20 23:40 ALT 72 U/L (13-61) H 03/29/20 23:40 Alkaline Phosphatase 104 U/L (45-117) 03/29/20 23:40 C-Reactive Protein 0.3 MG/DL (0.00-0.3) 03/29/20 23:40 Total Protein 7.5 g/dl (6.4-8.2) 03/29/20 23:40 Albumin 4.1 g/dl (3.4-5.0) 03/29/20 23:40 Serum , Qual Negative 03/29/20 23:40 03/30/20 03:20 Pt reassessed. Reports that headache has mildly improved. Plan to admit for temporal artery biopsy to r/o giant cell arteritis. 03/30/20 05:25 D/w Dr. Hanson who accepts the patient for admission. Discharge - Discharge Information Problems reviewed: Yes Clinical Impression/Diagnosis: Right-sided headache Condition: Fair - Admission Yes - Follow up/Referral - Patient Discharge Instructions - Post Discharge Activity
[2020-03-29] MEDS ORDERED: SODIUM CHLORIDE 0.9% 500 ML INFUS.BAG IV ONE (23:21)
[2020-03-29] MEDS ORDERED: METOCLOPRAMIDE HCL INJECTION 10 MG/2 ML VIAL IVPB ONE (23:21)
[2020-03-29] MEDS ORDERED: ACETAMINOPHEN 1000 MG/100 ML VIAL (NON FORMULARY) IVPB ONE (23:21)
--- NOTE | 2020-03-29 23:44 | PDOC ---
Documentation entered by Sudha Harkins SCRIBE, acting as scribe for Hortencia Gordon DO. Hortencia Gordon DO: This documentation has been prepared by the Torin ramírez Sydney, SCRIBE, under my direction and personally reviewed by me in its entirety. I confirm that the documentation accurately reflects all work, treatment, procedures, and medical decision making performed by me. Attending Attestation - Resident Resident Name: Kashif Nickerson - ED Attending Attestation I have performed the following: I have examined & evaluated the patient, The case was reviewed & discussed with the resident, I agree w/resident's findings & plan, Exceptions are as noted - HPI HPI: 03/29/20 23:48 Patient is a 30 year old female with a significant past medical history of pre- DM who presents to the ED with three days of a progressively worsening headache. As per patient, her headache has been waking her from her sleep and reports that she feels the most pain behind her right eye. She reports having headaches in the past, but none this severe, promoting her arrival to the ED. Patient reports associated symptoms of photophobia, phonophobia, jaw claudication and right temporal pain. Allergies: NKDA - Physicial Exam PE: 03/29/20 23:50 GENERAL: Awake, alert, and fully oriented, in no acute distress HEAD: No signs of trauma EYES: PERRLA, EOMI, sclera anicteric, conjunctiva clear ENT: Auricles normal inspection, hearing grossly normal, nares patent, oropharynx clear without exudates. Moist mucosa NECK: Normal ROM, supple, no lymphadenopathy, JVD, or masses LUNGS: Breath sounds equal, clear to auscultation bilaterally. No wheezes, and no crackles HEART: Regular rate and rhythm, normal S1 and S2, no murmurs, rubs or gallops ABDOMEN: Soft, nontender, normoactive bowel sounds. No guarding, no rebound. No masses EXTREMITIES: Normal range of motion, no edema. No clubbing or cyanosis. No cords, erythema, or tenderness NEUROLOGICAL: +tenderness to the right evangelical. Cranial nerves II through XII grossly intact. Normal speech. SKIN: Warm, Dry, normal turgor, no rashes or lesions noted. - Medical Decision Making 03/29/20 23:42 a/p: 30yo female with hx of prediabetes with garcia behind her R eye assoc with blurred vision earlier which has since resolved -neuro intact -no meningeal signs -ambulatory in the Er -no assoc n/v/d -no ear pain, sore throat +photophobia and phonophobia, denies scintillas -garcia x 3 days -will send labs, ct head -iv meds -ocular ultrasound 03/29/20 23:44 normal ocular ultrasound 03/29/20 23:53 +jaw claudication +temporal artery ttp -concern for temporal arteritis, will add crp/esr -will start steroids 03/29/20 23:[address] pending pt will most likely need admission for poss temporal arteritis, if crp/esr neg then less likely TA 03/30/20 00:00 no sinus ttp on exam Discharge - Discharge Information Problems reviewed: Yes Clinical Impression/Diagnosis: Right-sided headache Condition: Fair - Follow up/Referral - Patient Discharge Instructions - Post Discharge Activity
[2020-03-29] MEDS ORDERED: ACETAMINOPHEN INJECTION 100 ML IVPB ONE (23:46)
[2020-03-29] MEDS ORDERED: METOCLOPRAMIDE HCL INJECTION 10 MG/2 ML VIAL ONE (23:46)
[2020-03-29 23:51] LABS: BASO % 0.9 % (0-2.0); EOS % 3.2 % (0-4.5); HEMATOCRIT 35.9 % (32.4-45.2); LYMPH % 42.3 % (8-40); MCH 22.8 pg (25.7-33.7); MCHC 33.6 g/dl (32.0-36.0); MEAN CELL VOLUME 67.9 fl (80-96); MEAN PLT VOLUME 8.6 fl (7.5-11.1); MONO % 4.1 % (3.8-10.2); NEUT % 49.5 % (42.8-82.8); PLATELET COUNT 319 K/MM3 (134-434); RBC 5.28 M/mm3 (3.60-5.2); RDW 16.1 % (11.6-15.6); WHITE BLOOD COUNT 9.9 K/mm3 (4.0-10.0)
[2020-03-29] MEDS ORDERED: predniSONE 20 MG TABLET (UD) PO ONE (23:54)
[2020-03-30] MEDS ORDERED: predniSONE 20 MG TABLET (UD) ONE ×2 (00:15→10:11)
[2020-03-30 00:17] LABS: ALBUMIN 4.1 g/dl (3.4-5.0); BILIRUBIN,TOTAL 0.2 mg/dL (0.2-1); CREATININE 0.9 mg/dL (0.55-1.3); POTASSIUM 3.7 mmol/L (3.5-5.1); TOT PROT 7.5 g/dl (6.4-8.2)
[2020-03-30 00:29] LABS: INR 1.04 (0.83-1.09); PROTHROMBIN TIME (PATIENT) 12.3 SEC (9.7-13.0)
[2020-03-30 00:31] LABS: ACTIVATED PTT 33.5 SECONDS (25.2-36.5)
--- NOTE | 2020-03-30 04:50 | PN ---
Teaching Attending Note Name of Resident: Dakota Hanson ATTENDING PHYSICIAN STATEMENT I saw and evaluated the patient. I reviewed the resident's note and discussed the case with the resident. I agree with the resident's findings and plan as documented. SUBJECTIVE: Patient is a 30 year old woman with a PMH of Gestational diabetes during pregnan cy last year who presents to the ER with three days of a progressively worsening headache. The headache has been waking her from sleep and reports that she feels the most pain behind her right eye. She reports having headaches in the past, but none this severe, promoting her arrival to the ER. Patient reports associated symptoms of photophobia, phonophobia, jaw claudication and right temporal pain. Denies fever, chills, vomiting, chest pain, abdominal pain, dysuria or diarrhea. Denies alcohol, tobacco or illicit drug use. No sick contacts or recent travels. LMP was 5 months and irregular after she got a shot of Depo-Provera. Family history is unremarkable. OBJECTIVE: Alert Vital Signs Period Temp Pulse Resp BP Sys/Wood Pulse Ox Last 24 Hr 98.1 F-98.1 F 75-95 18-19 126-131/80-91 94-98 HEENT: No Jaundice, eye redness or discharge, PERRLA, EOMI. Normocephalic, atraumatic. External ears are normal and hearing is grossly intact. No nasal discharge. Neck: Supple, nontender. No palpable adenopathy or thyromegaly. No JVD Chest: Good effort. Clear to auscultation and percussion. Heart: Regular. No S3, rub or murmur Abdomen: Not distended, soft, nontender and no HSM. No rebound or guarding. Normal bowel sounds. Ext: Peripheral pulses intact. No leg edema. Skin: Warm and dry. No petechiae, rash or ecchymosis. Neuro: Alert. Oriented x3. CN 2-12 grossly intact. Sensation grossly intact in all four extremities and DTR are symmetric. Psych: Appropriate mood and affect. Good insight. Home Medications Medication Instructions Recorded Ibuprofen [Motrin -] 600 mg PO QID #28 tablet 01/08/18 Sumatriptan Succ/Naproxen Sod 1 each PO PRN PRN #30 tablet MDD 2 04/26/18 [Sumatriptan-Naproxen 85-500 mg] tabs Ondansetron [Zofran Odt -] 4 mg SL BID #14 od.tablet 06/24/18 Abnormal Lab Results 03/29/20 03/29/20 23:40 23:40 RBC 5.28 H MCV 67.9 L MCH 22.8 L RDW 16.1 H Lymphocytes % 42.3 H Chloride 108 H Anion Gap 6 L BUN 20.0 H Random Glucose 116 H ALT 72 H Current Medications Generic Name Dose Route Start Last Admin Trade Name Flora PRN Reason Stop Dose Admin Enoxaparin Sodium 40 mg 03/30/20 10:00 Lovenox - SQ DAILY [facility] Insulin Aspart 1 vial 03/30/20 07:00 Novolog Vial Sliding Scale - SQ ACHS ELIAN Protocol Prednisone 60 mg 03/30/20 10:00 Deltasone - PO DAILY ELIAN Sumatriptan Succinate 50 mg 03/30/20 06:30 Imitrex - PO ONCE ELIAN ASSESSMENT AND PLAN: 1. Headache/Rule out Giant cell arteritis - No acute abnormality on head CT. Normal right ocular point of care ultrasound and normal CRP and ESR. Patient started on Prednisone 60 mg PO qd. Will get PILY and Lyme studies. Will treat headache as Migraine pending artery biopsy. Needs biopsy of the vessel to rule out Giant cell arteritis. Will consult Surgery, Opthalmology, Neurology and Rheumatology. Viral testing for COVID-19 ordered and patient placed on airborne, droplet and contact isolation. EKG shows NSR at 78/minute, LVH and QTc [address]-T wave changes. Will continue comprehensive care for all of patients comorbid conditions. 2. Gestational diabetes Will get urine protein/creatinine ratio, HbA1c and implement sliding scale insulin regimen. Provide comprehensive diabetes care with patient teaching and counseling about the importance of adherence to prescribed diabetes regimen, euglycemia, eye care and foot care. 3. Obesity Counseled on the risks associated with obesity. Will provide patient all the necessary assistance, counseling and positive reinforcement to facilitate weight loss. Consult general warehouse worker. 4. DVT prophylaxis - SCD 5. Advance directives - Full code
--- NOTE | 2020-03-30 06:29 | HP ---
CHIEF COMPLAINT: Rt sided headache since 4 days PCP: HISTORY OF PRESENT ILLNESS: This is a 30 year old female with PMH of gestational DM. She presented to the ER with complaints of a right sided headache that began 4 days ago. The pain was localized around her right orbit extending to the forehead, right cheek, was gradual in onset, has been constant, waxing and waning with intensity 10/10 at its worst, sharp in nature, radiating down her neck. She has been taking Tylenol and Advil to help with the pain, with minimal to no relief. She endorses associated unilateral photophobia, blurry vision, unilateral rhinorrhea, jaw claudication, and dizziness, but no fevers, vision loss, LOC, seizures, shoulder stiffness, or muscle pain. She has never had a similar episode in the past. ER course was notable for: (1) CT Head normal (2) POCUS Orbit US normal (3) Elan Bonilla Recent Travel: Denies PAST MEDICAL HISTORY: Gestational DM during last (gave 1 year ago), was not on any medication with regular OB followup PAST SURGICAL HISTORY: Cyst removal from [facility] 2019 Laparotomy for ectopic Social History: Smoking: denies Alcohol: occasional Drugs: denies Allergies No Known Allergies Allergy (Verified 03/29/20 22:02) HOME MEDICATIONS: Home Medications Medication Instructions Recorded Ibuprofen [Motrin -] 600 mg PO QID #28 tablet 01/08/18 Sumatriptan Succ/Naproxen Sod 1 each PO PRN PRN #30 tablet MDD 2 04/26/18 [Sumatriptan-Naproxen 85-500 mg] tabs Ondansetron [Zofran Odt -] 4 mg SL BID #14 od.tablet 06/24/18 REVIEW OF SYSTEMS CONSTITUTIONAL: Absent: fever, chills, diaphoresis, generalized weakness, malaise, loss of appetite, weight change HEENT: Absent: rhinorrhea, nasal congestion, throat pain, throat swelling, difficulty swallowing, mouth swelling, ear pain, eye pain, visual changes CARDIOVASCULAR: Absent: chest pain, syncope, palpitations, irregular heart rate, lightheadedness, peripheral edema RESPIRATORY: Absent: cough, shortness of breath, dyspnea with exertion, orthopnea, wheezing, stridor, hemoptysis GASTROINTESTINAL: Absent: abdominal pain, abdominal distension, nausea, vomiting, diarrhea, constipation, melena, hematochezia GENITOURINARY: Absent: dysuria, frequency, urgency, hesitancy, hematuria, flank pain, genital pain MUSCULOSKELETAL: Absent: myalgia, arthralgia, joint swelling, back pain, neck pain SKIN: Absent: rash, itching, pallor HEMATOLOGIC/IMMUNOLOGIC: Absent: easy bleeding, easy bruising, lymphadenopathy, frequent infections ENDOCRINE: Absent: unexplained weight gain, unexplained weight loss, heat intolerance, cold intolerance NEUROLOGIC: headache Absent: headache, focal weakness or paresthesias, dizziness, unsteady gait, seizure, mental status changes, bladder or bowel incontinence PSYCHIATRIC: Absent: anxiety, depression, suicidal or homicidal ideation, hallucinations. PHYSICAL EXAMINATION Vital Signs - 24 hr 03/29/20 03/30/20 22:00 02:37 Temperature 98.1 F 98.1 F Pulse Rate 95 H Pulse Rate [ 75 Right Radial] Respiratory 18 19 Rate Blood Pressure 131/80 Blood Pressure 126/91 [Left Arm] O2 Sat by Pulse 98 94 L Oximetry (%) GENERAL: Awake, alert, and fully oriented, in no acute distress. HEAD: Tenderness to palpation over Rt moravian EYES: Pupils equal, round and reactive to light, extraocular movements intact, sclera anicteric, conjunctiva clear. No lid lag. EARS, NOSE, THROAT: Ears normal, nares patent, oropharynx clear without exudates. Moist mucous membranes. NECK: Normal range of motion, supple without lymphadenopathy, JVD, or masses. LUNGS: Breath sounds equal, clear to auscultation bilaterally. No wheezes, and no crackles. No accessory muscle use. HEART: Regular rate and rhythm, normal S1 and S2 without murmur, rub or gallop. ABDOMEN: Soft, nontender, not distended, normoactive bowel sounds, no guarding, no rebound, no masses. No hepatomegaly or splenomegaly. MUSCULOSKELETAL: Normal range of motion at all joints. No bony deformities or te nderness. No CVA tenderness. UPPER EXTREMITIES: 2+ pulses, warm, well-perfused. No cyanosis. No clubbing. No peripheral edema. LOWER EXTREMITIES: 2+ pulses, warm, well-perfused. No calf tenderness. No peripheral edema. NEUROLOGICAL: Cranial nerves II-XII intact. Normal speech. Normal gait. PSYCHIATRIC: Cooperative. Good eye contact. Appropriate mood and affect. SKIN: Warm, dry, normal turgor, no rashes or lesions noted, normal capillary refill. Laboratory Results - last 24 hr 03/29/20 03/29/20 03/29/20 23:40 23:40 23:40 WBC 9.9 RBC 5.28 H Hgb 12.0 Hct 35.9 MCV 67.9 L MCH 22.8 L MCHC 33.6 RDW 16.1 H Plt Count 319 MPV 8.6 Absolute Neuts (auto) 4.9 Neutrophils % 49.5 Lymphocytes % 42.3 H Monocytes % 4.1 Eosinophils % 3.2 D Basophils % 0.9 Nucleated RBC % 0 ESR PT with INR INR PTT (Actin FS) Sodium 141 Potassium 3.7 Chloride 108 H Carbon Dioxide 26 Anion Gap 6 L BUN 20.0 H Creatinine 0.9 Est GFR (CKD-EPI)AfAm 98.75 Est GFR (CKD-EPI)NonAf 85.20 Random Glucose 116 H Calcium 9.0 Total Bilirubin 0.2 AST 17 ALT 72 H Alkaline Phosphatase 104 C-Reactive Protein 0.3 Total Protein 7.5 Albumin 4.1 Serum , Qual Negative 03/30/20 03/30/20 00:01 00:01 WBC RBC Hgb Hct MCV MCH MCHC RDW Plt Count MPV Absolute Neuts (auto) Neutrophils % Lymphocytes % Monocytes % Eosinophils % Basophils % Nucleated RBC % ESR 18 PT with INR 12.30 INR 1.04 PTT (Actin FS) 33.5 Sodium Potassium Chloride Carbon Dioxide Anion Gap BUN Creatinine Est GFR (CKD-EPI)AfAm Est GFR (CKD-EPI)NonAf Random Glucose Calcium Total Bilirubin AST ALT Alkaline Phosphatase C-Reactive Protein Total Protein Albumin Serum , Qual ASSESSMENT/PLAN: This is a 30 year old female with PMH of gestational DM, presented to the ER with complaints of a right sided headache that began 4 days ago. Admitted for suspected Temporal Arteritis. #Headache - Migraine vs Temporal arteritis? - Migraine: Unilateral, gradual onset, photo/phono phobia, pain lasting upto 72hours, patient tempted to lie in a dark quiet room, pain worsened by daily activities all typical featuresof migraine - Temporal arteritis: Unilateral, temporal tenderness with jaw claudication, patient is 30 years old and cases of TA under 50 are extremely rare. However, consequences of TA are devastating (blindness) so threshold for further workup is very low - CRP 0.3, ESR 18: Study in [facility] of 167 patients found that 5% of TA patients had an ESR <40 but had an equal risk of blindness - Will continue to monitor daily CRP/ESR - CT Head was normal - Continue Prednisone 60mg daily - Vascular consult palced for possible temporal artery biopsy - Neuro consult for migraine vs TA - Lyme ab, PILY ordered to r/o other causes - Sumatriptan 50mg ordered for pain #Hx of gestational DM - BGM, Novolog ISS - HbA1c ordered #FEN - DM controlled diet #Prophylaxis - Lovenox #Dispo - Will monitor in M/S and await biopsy results while continuing Prednisone Visit type - Emergency Visit Emergency Visit: Yes ED Registration Date: 03/30/20 Care time: The patient presented to the Emergency Department on the above date and was hospitalized for further evaluation of their emergent condition. - New Patient This patient is new to me today: No - Critical Care Critical Care patient: No ATTENDING PHYSICIAN STATEMENT I saw and evaluated the patient. I reviewed the resident's note and discussed the case with the resident. I agree with the resident's findings and plan as documented. SUBJECTIVE: OBJECTIVE: ASSESSMENT AND PLAN:
[2020-03-30] MEDS ORDERED: SUMAtriptan SUCCINATE 50 MG TABLET PO ONE (06:30)
[2020-03-30] MEDS ORDERED: SUMAtriptan SUCCINATE 50 MG TABLET ONE (07:09)
[2020-03-30] MEDS: INSULIN SLIDING SCALE (NOVOLOG) 1 VIAL SQ SCH ×5 (09:24→23:15)
[2020-03-30] MEDS ORDERED: ENOXAPARIN NA (PORCINE) 40 MG/0.4 ML DISP.SYRIN SQ SCH (10:00)
[2020-03-30] MEDS ORDERED: ENOXAPARIN NA (PORCINE) 40 MG/0.4 ML DISP.SYRIN SQ ONE (10:11)
[2020-03-30] MEDS: predniSONE 20 MG TABLET (UD) PO SCH (10:17)
--- NOTE | 2020-03-30 10:25 | CONSULT ---
- Consultation REQUESTING PROVIDER: Bipin Maynard CONSULT REQUEST: We have been asked to surgically evaluate this patient for possible temporal arteritis PCP: Genaro Pak MD HPI: Called to eval 30 yo female with PMHx as noted below. Presents to [facility] ED w/ c/o right sided MORAELS x4 days. States pain localized around her right eye/orbit and extends superiorly to forehead and right cheek. Initially, pain was gradual in onset. Constant but waxing/waning. 10/10 at it's worst. Now states pain radiates into her right neck. Attempted to quell with Tylenol and Advil with min imal relief. States bright lights bother her right eye. She admits to blurry vision in affected eye, jaw claudication. While in ED she had a head CT which was normal. Started on Prednisone and Sumatriptan in ED. Denies n/v, vision loss, seizure disorder, migraines, cervical stenosis, muscle spasms or head trauma. Social History: Smoking: denies Alcohol: occasional Drugs: denies PMHx: Gestational DM (gave 1 year ago), MORALES PSHx: Cyst removal from [facility] 2018, Laparotomy for ectopic Home Meds Ibuprofen [Motrin -] 600 mg PO QID #28 tablet 01/08/18 Sumatriptan Succ/Naproxen Sod [Sumatriptan-Naproxen 85-500 mg] 1 each PO PRN PRN #30 tablet MDD 2 tabs 04/26/18 Ondansetron [Zofran Odt -] 4 mg SL BID #14 od.tablet 06/24/18 Allergies: NKDA ROS: 12 system review conducted and considered negative except for what's contained in the HPI PE: GENERAL: Awake, alert, and fully oriented, in no acute distress. HEAD: TTP over right temporal region EYES: Pupils equal, round and reactive to light, extraocular movements intact, sclera anicteric, conjunctiva clear. No lid lag. EARS, NOSE, THROAT: Ears normal, nares patent, oropharynx clear without exudates. Moist mucous membranes. NECK: Normal range of motion, supple without lymphadenopathy, JVD, or masses. LUNGS: Breath sounds equal, clear to auscultation bilaterally. No wheezes, and no crackles. No accessory muscle use. HEART: Regular rate and rhythm, normal S1 and S2 without murmur, rub or gallop. ABDOMEN: Soft, nontender, not distended, normoactive bowel sounds, no guarding, no rebound, no masses. No hepatomegaly or splenomegaly. MUSCULOSKELETAL: Normal range of motion at all joints. No bony deformities or tenderness. No CVA tenderness. UPPER EXTREMITIES: 2+ pulses, warm, well-perfused. No cyanosis. No clubbing. No peripheral edema. LOWER EXTREMITIES: 2+ pulses, warm, well-perfused. No calf tenderness. No peripheral edema. NEUROLOGICAL: Cranial nerves II-XII intact. Normal speech. Normal gait. PSYCHIATRIC: Cooperative. Good eye contact. Appropriate mood and affect. SKIN: Warm, dry, normal turgor, no rashes or lesions noted, normal capillary refill. Last Vital Signs Temp Pulse Resp BP Pulse Ox 98.0 F 72 18 131/88 97 03/30/20 06:32 03/30/20 07:15 03/30/20 07:15 03/30/20 07:15 03/30/20 07:15 CBC, BMP 03/29/20 23:40 03/29/20 23:40 INR, PTT INR 1.04 (0.83-1.09) 03/30/20 00:01 Serology Tests 03/30/20 03/30/20 06:05 09:56 Lyme Screen IgG & IgM Pending COVID-19 (GRISELDA) Pending Laboratory Tests 03/30/20 00:01 ESR 18 Problem List - Problems (1) Right-sided headache Assessment/Plan: 30 year old female presented to [facility] ED for further evaluation of her right sided MORALES x4 days getting progressively worse. Normal Head CT. ESR 18. Neurology consult reviewed. Started on Prednisone and Sumatriptan. r/o Migraine vs Temporal arteritis Migraine: Unilat, gradual onset, photo/phono phobia, pain lasting upto 72hrs, pain worsened by daily activities all typical features of migraine Temporal arteritis: Unilat, temporal tenderness with jaw claudication - continue to monitor daily CRP/ESR - continue Prednisone 60mg daily - Lyme ab, PILY pending - Covid pending / isolation protocol - Sumatriptan 50mg ordered for pain - tight glycemic control - DVT ppx - patient scheduled for temp art bx 04/02/[address] Maynard if all pending lab test don't yield a definitive diagnosis. make npo after midnight except po meds thursday. Above plan discussed with Dr. Maynard and agrees Code(s): R51 - HEADACHE (2) Ectopic Code(s): O00.90 - UNSPECIFIED ECTOPIC WITHOUT INTRAUTERINE Qualifiers: Location of ectopic : unspecified location Intrauterine status: without intrauterine Qualified Code(s): O00.90 - Unspecified ectopic without intrauterine Visit type - Case Type Case Type: ED Admission - Emergency Emergency Visit: Yes ED Registration Date: 03/30/20 Care time: The patient presented to the Emergency Department on the above date and was hospitalized for further evaluation of their emergent condition. - New patient This patient is new to me today: Yes Date on this admission: 03/30/20
--- NOTE | 2020-03-30 11:56 | CONSULT ---
Consult - text type - Consultation Consultation Note: Neurology CHIEF COMPLAINT: Rt sided headache since 4 days HISTORY OF PRESENT ILLNESS: This is a 30 year old female with PMH of gestational DM> She presented to the ER with complaints of a right sided headache that began 4 days pior. The pain was localized around her right orbit extending to the forehead, right cheek, was gradual in onset, has been constant, waxing and waning with intensity 10/10 at its worst, sharp in nature, radiating down her neck. She has been taking Tylenol and Advil to help with the pain, with minimal to no relief. She endorsed associated unilateral photophobia, blurry vision, unilaterl rhinorrhea, jaw claudication, and dizziness, but no fevers, vision loss, LOC, seizures, shoulder stiffness, or muscle pain. She has never had a similar episode in the past. CT head was completed and did not show any acute abnormalities. During my evaluation, she continues to have symptoms which seem more consistent with migraine. Less likely to be giants Cell arteritis given her age and inflammatory markers being within normal limits. She was given one dose of sumatriptan. At this time, Recommend migraine treatment and started patient on Topamax 50 mg twice a day, also prescribed for us that to be given as needed up to every four hours, patient would need to ask for the medication. She would like to go home and Headache and likely be managed as an outpatient. Recent Travel: Denies PAST MEDICAL HISTORY: Gestational DM during last (gave 1 year ago), was not aon any medication with regular OB followup PAST SURGICAL HISTORY: Cyst removal from [facility] 2019 Laparotomy for ectopic Social History: Smoking: denies Alcohol: occasional Drugs: denies Allergies No Known Allergies Allergy (Verified 03/29/20 22:02) HOME MEDICATIONS: Home Medications Medication Instructions Recorded Ibuprofen [Motrin -] 600 mg PO QID #28 tablet 01/08/18 Sumatriptan Succ/Naproxen Sod 1 each PO PRN PRN #30 tablet MDD 2 04/26/18 [Sumatriptan-Naproxen 85-500 mg] tabs Ondansetron [Zofran Odt -] 4 mg SL BID #14 od.tablet 06/24/18 REVIEW OF SYSTEMS CONSTITUTIONAL: Absent: fever, chills, diaphoresis, generalized weakness, malaise, loss of appetite, weight change HEENT: Absent: rhinorrhea, nasal congestion, throat pain, throat swelling, difficulty swallowing, mouth swelling, ear pain, eye pain, visual changes CARDIOVASCULAR: Absent: chest pain, syncope, palpitations, irregular heart rate, lightheadedness, peripheral edema RESPIRATORY: Absent: cough, shortness of breath, dyspnea with exertion, orthopnea, wheezing, stridor, hemoptysis GASTROINTESTINAL: Absent: abdominal pain, abdominal distension, nausea, vomiting, diarrhea, constipation, melena, hematochezia GENITOURINARY: Absent: dysuria, frequency, urgency, hesitancy, hematuria, flank pain, genital pain MUSCULOSKELETAL: Absent: myalgia, arthralgia, joint swelling, back pain, neck pain SKIN: Absent: rash, itching, pallor HEMATOLOGIC/IMMUNOLOGIC: Absent: easy bleeding, easy bruising, lymphadenopathy, frequent infections ENDOCRINE: Absent: unexplained weight gain, unexplained weight loss, heat intolerance, cold intolerance NEUROLOGIC: headache Absent: headache, focal weakness or paresthesias, dizziness, unsteady gait, seizure, mental status changes, bladder or bowel incontinence PSYCHIATRIC: Absent: anxiety, depression, suicidal or homicidal ideation, hallucinations. PHYSICAL EXAMINATION Vital Signs Period Temp Pulse Resp BP Sys/Wood Pulse Ox Last 24 Hr 98.0 F-98.7 F 65-95 18-19 124-141/80-91 94-99 GENERAL: Awake, alert, and fully oriented, in no acute distress. HEAD: Tenderness to palpation over Rt mandaen EYES: Pupils equal, round and reactive to light, extraocular movements intact, sclera anicteric, conjunctiva clear. No lid lag. EARS, NOSE, THROAT: Ears normal, nares patent, oropharynx clear without exudates. Moist mucous membranes. NECK: Normal range of motion, supple without lymphadenopathy, JVD, or masses. LUNGS: Breath sounds equal, clear to auscultation bilaterally. No wheezes, and no crackles. No accessory muscle use. HEART: Regular rate and rhythm, normal S1 and S2 without murmur, rub or gallop. ABDOMEN: Soft, nontender, not distended, normoactive bowel sounds, no guarding, no rebound, no masses. No hepatomegaly or splenomegaly. MUSCULOSKELETAL: Normal range of motion at all joints. No bony deformities or tenderness. No CVA tenderness. UPPER EXTREMITIES: 2+ pulses, warm, well-perfused. No cyanosis. No clubbing. No peripheral edema. LOWER EXTREMITIES: 2+ pulses, warm, well-perfused. No calf tenderness. No peripheral edema. NEUROLOGICAL: Cranial nerves II-XII intact. Normal speech. Strength in tact, moves all extremities equally, sensory int PSYCHIATRIC: Cooperative. Good eye contact. Appropriate mood and affect. SKIN: Warm, dry, normal turStrength in tact, moves all extremities equally, sensory intact Laboratory Results - last 24 hr 03/29/20 03/29/20 03/29/20 23:40 23:40 23:40 WBC 9.9 RBC 5.28 H Hgb 12.0 Hct 35.9 MCV 67.9 L MCH 22.8 L MCHC 33.6 RDW 16.1 H Plt Count 319 MPV 8.6 Absolute Neuts (auto) 4.9 Neutrophils % 49.5 Lymphocytes % 42.3 H Monocytes % 4.1 Eosinophils % 3.2 D Basophils % 0.9 Nucleated RBC % 0 ESR PT with INR INR PTT (Actin FS) Sodium 141 Potassium 3.7 Chloride 108 H Carbon Dioxide 26 Anion Gap 6 L BUN 20.0 H Creatinine 0.9 Est GFR (CKD-EPI)AfAm 98.75 Est GFR (CKD-EPI)NonAf 85.20 Random Glucose 116 H Calcium 9.0 Total Bilirubin 0.2 AST 17 ALT 72 H Alkaline Phosphatase 104 C-Reactive Protein 0.3 Total Protein 7.5 Albumin 4.1 Serum , Qual Negative 03/30/20 03/30/20 00:01 00:01 WBC RBC Hgb Hct MCV MCH MCHC RDW Plt Count MPV Absolute Neuts (auto) Neutrophils % Lymphocytes % Monocytes % Eosinophils % Basophils % Nucleated RBC % ESR 18 PT with INR 12.30 INR 1.04 PTT (Actin FS) 33.5 Sodium Potassium Chloride Carbon Dioxide Anion Gap BUN Creatinine Est GFR (CKD-EPI)AfAm Est GFR (CKD-EPI)NonAf Random Glucose Calcium Total Bilirubin AST ALT Alkaline Phosphatase C-Reactive Protein Total Protein Albumin Serum , Qual ASSESSMENT/PLAN: 30 year old female with PMH of gestational DM> She presented to the ER with complaints of a right sided headache that began 4 days pior. The pain was localized around her right orbit extending to the forehead, right cheek, was gradual in onset, has been constant, waxing and waning with intensity 10/10 at its worst, sharp in nature, radiating down her neck. She has been taking Tylenol and Advil to help with the pain, with minimal to no relief. She endorsed associated unilateral photophobia, blurry vision, unilaterl rhinorrhea, jaw claudication, and dizziness, but no fevers, vision loss, LOC, seizures, shoulder stiffness, or muscle pain. She has never had a similar episode in the past. CT head was completed and did not show any acute abnormalities. During my evaluation, she continues to have symptoms which seem more consistent with migraine. Less likely to be giants Cell arteritis given her age and inflammatory markers being within normal limits. She was given one dose of sumatriptan. At this time, Recommend migraine treatment and started patient on Topamax 50 mg twice a day, also prescribed for us that to be given as needed up to every four hours, patient would need to ask for the medication. She would like to go home and Headache and likely be managed as an outpatient. Defer to primary/vascular regarding steroids and temporal artery biopsy, though seems unlikely etiology.
[2020-03-30] MEDS ORDERED: TOPIRAMATE 25 MG TABLET ONE (12:11)
[2020-03-30] MEDS: TOPIRAMATE 25 MG TABLET PO SCH ×2 (12:15→22:15)
--- NOTE | 2020-03-30 14:06 | PN ---
Progress Note (short form) - Note Progress Note: SUBJECTIVE: Ongoing R sided headache and temporal tenderness. No fever/chills. OBJECTIVE: Afebrile, Hemodynamically Stable. Last Vital Signs Temp Pulse Resp BP Pulse Ox 98.7 F 77 18 136/89 99 03/30/20 11:51 03/30/20 12:35 03/30/20 12:35 03/30/20 12:35 03/30/20 12:35 HEENT - Atraumatic, normocephalic. Heart - S1, S2, RRR Lungs - clear to auscultation Abdomen - soft, non-tender. Bowel Sounds normal. Extremities - no edema, no calf tenderness. Neuro - AAO x 3. Tone/Power normal all extremities. Tender R temporal region. Laboratory Results - last 24 hr 03/29/20 03/29/20 03/29/20 23:40 23:40 23:40 WBC 9.9 RBC 5.28 H Hgb 12.0 Hct 35.9 MCV 67.9 L MCH 22.8 L MCHC 33.6 RDW 16.1 H Plt Count 319 MPV 8.6 Absolute Neuts (auto) 4.9 Neutrophils % 49.5 Lymphocytes % 42.3 H Monocytes % 4.1 Eosinophils % 3.2 D Basophils % 0.9 Nucleated RBC % 0 ESR PT with INR INR PTT (Actin FS) Sodium 141 Potassium 3.7 Chloride 108 H Carbon Dioxide 26 Anion Gap 6 L BUN 20.0 H Creatinine 0.9 Est GFR (CKD-EPI)AfAm 98.75 Est GFR (CKD-EPI)NonAf 85.20 POC Glucometer Random Glucose 116 H Hemoglobin A1c % Calcium 9.0 Iron TIBC Iron Saturation Unsaturated IBC Ferritin Total Bilirubin 0.2 AST 17 ALT 72 H Alkaline Phosphatase 104 C-Reactive Protein 0.3 Total Protein 7.5 Albumin 4.1 Serum , Qual Negative 03/30/20 03/30/20 03/30/20 00:01 00:01 07:01 WBC RBC Hgb Hct MCV MCH MCHC RDW Plt Count MPV Absolute Neuts (auto) Neutrophils % Lymphocytes % Monocytes % Eosinophils % Basophils % Nucleated RBC % ESR 18 PT with INR 12.30 INR 1.04 PTT (Actin FS) 33.5 Sodium Potassium Chloride Carbon Dioxide Anion Gap BUN Creatinine Est GFR (CKD-EPI)AfAm Est GFR (CKD-EPI)NonAf POC Glucometer 159 Random Glucose Hemoglobin A1c % Calcium Iron TIBC Iron Saturation Unsaturated IBC Ferritin Total Bilirubin AST ALT Alkaline Phosphatase C-Reactive Protein Total Protein Albumin Serum , Qual 03/30/20 03/30/20 03/30/20 09:20 09:56 09:56 WBC RBC Hgb Hct MCV MCH MCHC RDW Plt Count MPV Absolute Neuts (auto) Neutrophils % Lymphocytes % Monocytes % Eosinophils % Basophils % Nucleated RBC % ESR PT with INR INR PTT (Actin FS) Sodium Potassium Chloride Carbon Dioxide Anion Gap BUN Creatinine Est GFR (CKD-EPI)AfAm Est GFR (CKD-EPI)NonAf POC Glucometer 164 Random Glucose Hemoglobin A1c % 5.9 Calcium Iron 37 L TIBC 322 Iron Saturation 11 L Unsaturated IBC 285 H Ferritin 43.6 Total Bilirubin AST ALT Alkaline Phosphatase C-Reactive Protein Total Protein Albumin Serum , Qual 03/30/20 11:12 WBC RBC Hgb Hct MCV MCH MCHC RDW Plt Count MPV Absolute Neuts (auto) Neutrophils % Lymphocytes % Monocytes % Eosinophils % Basophils % Nucleated RBC % ESR PT with INR INR PTT (Actin FS) Sodium Potassium Chloride Carbon Dioxide Anion Gap BUN Creatinine Est GFR (CKD-EPI)AfAm Est GFR (CKD-EPI)NonAf POC Glucometer 213 Random Glucose Hemoglobin A1c % Calcium Iron TIBC Iron Saturation Unsaturated IBC Ferritin Total Bilirubin AST ALT Alkaline Phosphatase C-Reactive Protein Total Protein Albumin Serum , Qual Current Medications Generic Name Dose Route Start Last Admin Trade Name Freq PRN Reason Stop Dose Admin Acetaminophen/Butalbital/Caffeine 1 tablet 03/30/20 11:50 Fioricet - PO Q4H PRN HEADACHE Enoxaparin Sodium 40 mg 03/30/20 10:00 03/30/20 10:17 Lovenox - SQ 40 mg DAILY ELIAN Administration Insulin Aspart 1 vial 03/30/20 07:00 03/30/20 12:05 Novolog Vial Sliding Scale - SQ 4 unit ACHS ELIAN Administration Protocol Prednisone 60 mg 03/30/20 10:00 03/30/20 10:17 Deltasone - PO 60 mg DAILY ELIAN Administration Topiramate 50 mg 03/30/20 12:00 03/30/20 12:15 Topamax - PO 50 mg BID ELIAN Administration Home Medications Medication Instructions Recorded Ibuprofen [Motrin -] 600 mg PO QID #28 tablet 01/08/18 Sumatriptan Succ/Naproxen Sod 1 each PO PRN PRN #30 tablet MDD 2 04/26/18 [Sumatriptan-Naproxen 85-500 mg] tabs Ondansetron [Zofran Odt -] 4 mg SL BID #14 od.tablet 06/24/18 ASSESSMENT/PLAN: 30 year old female with history of gestational DM, prior ectopic requiring laparotomy, presents with 3-4 day history of R sided headache, R temporal tenderness radiating to back of her head down her neck. CT Head - no acute intracranial findings. POCUS Orbit US normal as per ED provider. MRI - no acute findings. 1. Headache - Migraine versus temporal Arteritis. Migraine more likely given absence of inflammatory markers. CRP 0.3, ESR 18 Neuro evaluated - recommended Sumatriptan PRN, Topiramate. Rheumatology consulted for opinion regarding possible temporal arteritis. Placed on empiric Prednisone. Vascular Surgery consult for possible temporal artery Bx if recommended by Rheumatology. Lyme Ab, PILY pending. 2. Hx of gestational Diabetes, A1c 5.9. Novolog as per sliding scale. 3. Iron deficiency - MCV 67.9. Iron Sat 11%, Ferritin 45. No evidence of acute blood loss. Iron supplementation. MOLD WASHER, GI referral on discharge for further work-up. DVT Px - Will discontinue Lovenox SQ due to iron deficiency, start SCDs. Visit type - Emergency Visit Emergency Visit: Yes ED Registration Date: 03/30/20 Care time: The patient presented to the Emergency Department on the above date and was hospitalized for further evaluation of their emergent condition. - New Patient This patient is new to me today: Yes Date on this admission: 03/30/20 - Critical Care Critical Care patient: No - Discharge Referral Referred to [facility] Med P.C.: No
[2020-03-30] MEDS ORDERED: DOCUSATE SODIUM 100 MG CAPSULE (FP) PO PRN (14:16)
[2020-03-30] MEDS ORDERED: INSULIN (NOVOLOG) ASPART 100 UNITS/ML 10ML VIAL ONE ×2 (16:07→22:16)
[2020-03-30] MEDS: PANTOPRAZOLE 40 MG TABLET PO SCH (16:13)
--- NOTE | 2020-03-30 16:34 | CONSULT ---
Consult Consult Specialty:: Rheumatology - History of Present Illness History of Present Illness: 30 year old female with PMH of gestational DM, admitted with new onset headache and periorbital pain. HPI. The patient reports a 3 day history of headache localized to the right frontal, periorbital and temporal regions and tenderness in the right retroauricular region. The pain was very severe (10/10), she was started in the hospital on Prednisone 60 mg/d and today she has partial improvement, [facility] the pain is still present. She had questionable mild blurred vision with the right eye and she denies history of migraine headaches or sinusitis. She denies jaw pain, jaw claudication, shoulder or hip pain, shortness of breath or fever. CT of the head reported as normal and paranasal sinuses were normal as well. MRI had with partially empty sella turcica and otherwise normal. Laboratory work-up: CBC, SMA-7 and liver function tests were normal. ESR 18 and CRP 0.3. - History Source History Provided By: Patient, Medical Record - Past Medical History ...LMP: 10/29/17 ...: No - Alcohol/Substance Use Hx Alcohol Use: No History of Substance Use: reports: None - Smoking History Smoking history: Former smoker Have you smoked in the past 12 months: No Aproximately how many cigarettes per day: 2 If you are a former smoker, when did you quit?: 2018 - Social History History of Recent Travel: No Home Medications - Allergies Allergies/Adverse Reactions: Allergies Allergy/AdvReac Type Severity Reaction Status Date / Time No Known Allergies Allergy Verified 03/29/20 22:02 - Home Medications Home Medications: Ambulatory Orders Ibuprofen [Motrin -] 600 mg PO QID #28 tablet 01/08/18 Sumatriptan Succ/Naproxen Sod [Sumatriptan-Naproxen 85-500 mg] 1 each PO PRN PRN #30 tablet MDD 2 tabs 04/26/18 Ondansetron [Zofran Odt -] 4 mg SL BID #14 od.tablet 06/24/18 Review of Systems - Review of Systems Constitutional: reports: No Symptoms Eyes: reports: Other (See HPI) HENT: reports: Other (See HPI) Cardiovascular: reports: No Symptoms Respiratory: reports: No Symptoms Gastrointestinal: reports: No Symptoms Musculoskeletal: reports: No Symptoms Physical Exam Vital Signs: Vital Signs Temperature 98.6 F 03/30/20 14:34 Pulse Rate 74 03/30/20 14:34 Respiratory Rate 18 03/30/20 14:34 Blood Pressure 135/78 03/30/20 14:34 O2 Sat by Pulse Oximetry (%) 98 03/30/20 15:00 Constitutional: Yes: Mild Distress Eyes: Yes: Other (Tenderness on palpation of the right eye.) HENT: Yes: Other (Tenderness in the right frontal and temporal regions. No significant tenderness on palpation of the periporbital bone. The temporal arteries were normal in pulsation and consistency.) Cardiovascular: Yes: WNL Gastrointestinal: Yes: WNL Musculoskeletal: Yes: Other (No active joints.) Labs: CBC, BMP 03/29/20 23:40 03/29/20 23:40 Laboratory Tests 03/29/20 23:40 Total Bilirubin 0.2 AST 17 ALT 72 H Alkaline Phosphatase 104 C-Reactive Protein 0.3 Total Protein 7.5 Problem List - Problems (1) Right-sided headache Assessment/Plan: Based on the patient's age and normal acute phase reactants, it is extremely unlikely that the she has giant cell arteritis. Etiology of the pain to be determined. It is also very unlikely that she has other vasculitis that can involve the periorbital region. I suggest to taper down and DC Prednisone. Code(s): R51 - HEADACHE
[2020-03-30] MEDS: ACETAMINOPHEN/CAFFEINE/BUTALBITAL 1 TAB PO PRN (18:24)
[2020-03-30] MEDS ORDERED: PT OWN MED DRAWER 7, Y5N ONE (21:14)
[2020-03-30] MEDS: FERROUS SO4 325 MG TABLET (FP) PO SCH (22:15)
[2020-03-31] MEDS ORDERED: INSULIN (NOVOLOG) ASPART 100 UNITS/ML 10ML VIAL ONE (06:25)
[2020-03-31] MEDS: INSULIN SLIDING SCALE (NOVOLOG) 1 VIAL SQ SCH ×2 (06:59→11:32)
[2020-03-31 08:26] LABS: ALBUMIN 3.7 g/dl (3.4-5.0); BILIRUBIN,TOTAL 0.3 mg/dL (0.2-1); BLOOD UREA NITROGEN 11.7 mg/dL (7-18); CALCIUM 8.9 mg/dL (8.5-10.1); CREATININE 0.7 mg/dL (0.55-1.3); MAGNESIUM 2.4 mg/dL (1.8-2.4); PHOSPHOROUS 3.4 mg/dL (2.5-4.9); TOT PROT 7.3 g/dl (6.4-8.2)
[2020-03-31 08:27] LABS: HEMATOCRIT 36.2 % (32.4-45.2); HEMOGLOBIN 11.5 GM/dL (10.7-15.3); MCH 21.6 pg (25.7-33.7); MCHC 31.8 g/dl (32.0-36.0); MEAN PLT VOLUME 9.3 fl (7.5-11.1); PLATELET COUNT 309 K/MM3 (134-434); RBC 5.33 M/mm3 (3.60-5.2); RDW 16.4 % (11.6-15.6); WHITE BLOOD COUNT 11.3 K/mm3 (4.0-10.0)
[2020-03-31] MEDS ORDERED: PT OWN MED DRAWER 7, Y5N ONE (09:05)
[2020-03-31] MEDS: predniSONE 20 MG TABLET (UD) PO SCH (09:16)
[2020-03-31] MEDS: PANTOPRAZOLE 40 MG TABLET PO SCH (09:16)
[2020-03-31] MEDS: FERROUS SO4 325 MG TABLET (FP) PO SCH (09:16)
[2020-03-31] MEDS ORDERED: predniSONE 20 MG TABLET (UD) PO SCH (09:30)
[2020-03-31] MEDS: TOPIRAMATE 25 MG TABLET PO SCH (09:41)
--- NOTE | 2020-03-31 12:21 | PN ---
Progress Note (short form) - Note Progress Note: [facility] *LIVE* Neurology CHIEF COMPLAINT: Rt sided headache since 4 days HISTORY OF PRESENT ILLNESS: This is a 30 year old female with PMH of gestational DM> She presented to the ER with complaints of a right sided headache that began 4 days pior. The pain was localized around her right orbit extending to the forehead, right cheek, was gradual in onset, has been constant, waxing and waning with intensity 10/10 at its worst, sharp in nature, radiating down her neck. She has been taking Tylenol and Advil to help with the pain, with minimal to no relief. She endorsed associated unilateral photophobia, blurry vision, unilaterl rhinorrhea, jaw claudication, and dizziness, but no fevers, vision loss, LOC, seizures, shoulder stiffness, or muscle pain. She has never had a similar episode in the past. CT head was completed and did not show any acute abnormalities. During my evaluation, she continues to have symptoms which seem more consistent with migraine. Less likely to be giants Cell arteritis given her age and inflammatory markers being within normal limits. She was given one dose of sumatriptan. Recommended migraine treatment and started patient on Topamax 50 mg twice a day, also prescribed for fioricent to be given as needed up to every four hours, advised patient that they would need to ask for the medication. Rheumatology not reviewed and also does not feel that she meets criteria for giant cell arteritis. Discussed with Hospitalist and plan is for discharge and outpatient follow up. Active Medications Acetaminophen/Butalbital/Caffeine (Fioricet -) 1 tablet PO Q4H PRN PRN Reason: HEADACHE Last Admin: 03/30/20 18:24 Dose: 1 tablet Documented by: Docusate Sodium (Colace -) 100 mg PO BID PRN PRN Reason: CONSTIPATION Ferrous Sulfate (Feosol -) 325 mg PO BID [facility] Last Admin: 03/31/20 09:16 Dose: 325 mg Documented by: Insulin Aspart (Novolog Vial Sliding Scale -) 1 vial SQ ACHS [facility]; Protocol Last Admin: 03/31/20 11:32 Dose: Not Given Documented by: Pantoprazole Sodium (Protonix -) 40 mg PO DAILY [facility] Last Admin: 03/31/20 09:16 Dose: 40 mg Documented by: Prednisone (Deltasone -) 40 mg PO DAILY [facility] Last Admin: 03/31/20 09:38 Dose: Not Given Documented by: Topiramate (Topamax -) 50 mg PO BID [facility] Last Admin: 03/31/20 09:41 Dose: 50 mg Documented by: PHYSICAL EXAMINATION Vital Signs Period Temp Pulse Resp BP Sys/Wood Pulse Ox Last 24 Hr 98.0 F-98.6 F 60-77 18-20 120-144/69-89 98-99 GENERAL: Awake, alert, and fully oriented, in no acute distress. EYES: Pupils equal, round and reactive to light, extraocular movements intact, sclera anicteric, conjunctiva clear. No lid lag. EARS, NOSE, THROAT: Ears normal, nares patent, oropharynx clear without exudates. Moist mucous membranes. NECK: Normal range of motion, supple without lymphadenopathy, JVD, or masses. LUNGS: Breath sounds equal, clear to auscultation bilaterally. No wheezes, and no crackles. No accessory muscle use. HEART: Regular rate and rhythm, normal S1 and S2 without murmur, rub or gallop. ABDOMEN: Soft, nontender, not distended, normoactive bowel sounds, no guarding, no rebound, no masses. No hepatomegaly or splenomegaly. MUSCULOSKELETAL: Normal range of motion at all joints. No bony deformities or tenderness. No CVA tenderness. UPPER EXTREMITIES: 2+ pulses, warm, well-perfused. No cyanosis. No clubbing. No peripheral edema. LOWER EXTREMITIES: 2+ pulses, warm, well-perfused. No calf tenderness. No peripheral edema. NEUROLOGICAL: Cranial nerves II-XII intact. Normal speech. Strength in tact, moves all extremities equally, sensory int PSYCHIATRIC: Cooperative. Good eye contact. Appropriate mood and affect. SKIN: Warm, dry, normal turStrength in tact, moves all extremities equally, sensory intact CBCD WBC 11.3 K/mm3 (4.0-10.0) H 03/31/20 06:20 RBC 5.33 M/mm3 (3.60-5.2) H 03/31/20 06:20 Hgb 11.5 GM/dL (10.7-15.3) 03/31/20 06:20 Hct 36.2 % (32.4-45.2) 03/31/20 06:20 MCV 68.0 fl (80-96) L 03/31/20 06:20 MCHC 31.8 g/dl (32.0-36.0) L 03/31/20 06:20 RDW 16.4 % (11.6-15.6) H 03/31/20 06:20 Plt Count 309 K/MM3 (134-434) 03/31/20 06:20 MPV 9.3 fl (7.5-11.1) 03/31/20 06:20 CMP Sodium 142 mmol/L (136-145) 03/31/20 06:20 Potassium 4.0 mmol/L (3.5-5.1) 03/31/20 06:20 Chloride 111 mmol/L (98-107) H 03/31/20 06:20 Carbon Dioxide 22 mmol/L (21-32) 03/31/20 06:20 Anion Gap 9 MMOL/L (8-16) 03/31/20 06:20 BUN 11.7 mg/dL (7-18) 03/31/20 06:20 Creatinine 0.7 mg/dL (0.55-1.3) 03/31/20 06:20 Random Glucose 111 mg/dL (74-106) H 03/31/20 06:20 Calcium 8.9 mg/dL (8.5-10.1) 03/31/20 06:20 Total Bilirubin 0.3 mg/dL (0.2-1) 03/31/20 06:20 AST 6 U/L (15-37) L 03/31/20 06:20 ALT 48 U/L (13-61) 03/31/20 06:20 Alkaline Phosphatase 86 U/L (45-117) 03/31/20 06:20 Total Protein 7.3 g/dl (6.4-8.2) 03/31/20 06:20 Albumin 3.7 g/dl (3.4-5.0) 03/31/20 06:20 ASSESSMENT/PLAN: 30 year old female with PMH of gestational DM> She presented to the ER with complaints of a right sided headache that began 4 days pior. The pain was localized around her right orbit extending to the forehead, right cheek, was gradual in onset, has been constant, waxing and waning with intensity 10/10 at its worst, sharp in nature, radiating down her neck. She has been taking Tylenol and Advil to help with the pain, with minimal to no relief. She endorsed associated unilateral photophobia, blurry vision, unilaterl rhinorrhea, jaw claudication, and dizziness, but no fevers, vision loss, LOC, seizures, shoulder stiffness, or muscle pain. She has never had a similar episode in the past. CT head was completed and did not show any acute abnormalities. During my evaluation, she continues to have symptoms which seem more consistent with migraine. Less likely to be giants Cell arteritis given her age and inflammatory markers being within normal limits. She was given one dose of sumatriptan. Recommended migraine treatment and started patient on Topamax 50 mg twice a day, also prescribed for fioricent to be given as needed up to every four hours, advised patient that they would need to ask for the medication. Rheumatology not reviewed and also does not feel that she meets criteria for giant cell arteritis. Discussed with Hospitalist and plan is for discharge and outpatient follow up. Patient does report feeling better and more comfortable appearing.
[2020-03-31 12:26] LABS: ERYTHROCYTE SEDIMENTATION RATE 16 mm/hr (0-20)
--- NOTE | 2020-03-31 12:57 | DS ---
Physical Exam: SUBJECTIVE: Patient seen and examined OBJECTIVE: Vital Signs Period Temp Pulse Resp BP Sys/Wood Pulse Ox Last 24 Hr 98.0 F-98.6 F 60-74 18-20 120-144/69-88 98-98 PHYSICAL EXAM GENERAL: The patient is awake, alert, and fully oriented, in no acute distress. HEAD: Normal with no signs of trauma. EYES: PERRL, extraocular movements intact, sclera anicteric, conjunctiva clear. ENT: Ears normal, nares patent, oropharynx clear without exudates, moist mucous membranes. NECK: Trachea midline, full range of motion, supple. LUNGS: Breath sounds equal, clear to auscultation bilaterally, no wheezes, no crackles, no accessory muscle use. HEART: Regular rate and rhythm, S1, S2 without murmur, rub or gallop. ABDOMEN: Soft, nontender, nondistended, normoactive bowel sounds, no guarding, no rebound, no hepatosplenomegaly, no masses. EXTREMITIES: 2+ pulses, warm, well-perfused, no edema. NEUROLOGICAL: Cranial nerves II through XII grossly intact. Normal speech, gait not observed. PSYCH: Normal mood, normal affect. SKIN: Warm, dry, normal turgor, no rashes or lesions noted. LABS Laboratory Results - last 24 hr 03/30/20 03/30/20 03/31/20 16:12 22:12 06:20 WBC 11.3 H RBC 5.33 H Hgb 11.5 Hct 36.2 MCV 68.0 L MCH 21.6 L MCHC 31.8 L RDW 16.4 H Plt Count 309 MPV 9.3 ESR 16 Sodium Potassium Chloride Carbon Dioxide Anion Gap BUN Creatinine Est GFR (CKD-EPI)AfAm Est GFR (CKD-EPI)NonAf POC Glucometer 170 151 Random Glucose Calcium Phosphorus Magnesium Total Bilirubin AST ALT Alkaline Phosphatase Total Protein Albumin 03/31/20 03/31/20 03/31/20 06:20 06:52 11:14 WBC RBC Hgb Hct MCV MCH MCHC RDW Plt Count MPV ESR Sodium 142 Potassium 4.0 Chloride 111 H Carbon Dioxide 22 Anion Gap 9 BUN 11.7 Creatinine 0.7 Est GFR (CKD-EPI)AfAm 133.81 Est GFR (CKD-EPI)NonAf 115.45 POC Glucometer 110 123 Random Glucose 111 H Calcium 8.9 Phosphorus 3.4 Magnesium 2.4 Total Bilirubin 0.3 AST 6 L ALT 48 Alkaline Phosphatase 86 Total Protein 7.3 Albumin 3.7 HOSPITAL COURSE: Date of Admission:03/30/20 Date of Discharge: 03/31/20 Minutes to complete discharge: 40 Discharge Summary Problems reviewed: Yes Reason For Visit: RIGHT-SIDED HEADACHE Current Active Problems Right-sided headache (Acute) Condition: Fair - Instructions - Home Medications Comprehensive Discharge Medication List: Ambulatory Orders Ibuprofen [Motrin -] 600 mg PO QID #28 tablet 01/08/18 Sumatriptan Succ/Naproxen Sod [Sumatriptan-Naproxen 85-500 mg] 1 each PO PRN PRN #30 tablet MDD 2 tabs 04/26/18 Ondansetron [Zofran Odt -] 4 mg SL BID #14 od.tablet 06/24/18 - Discharge Referral Referred to [facility] No ATTENDING PHYSICIAN STATEMENT I saw and evaluated the patient. I reviewed the resident's note and discussed the case with the resident. I agree with the resident's findings and plan as documented. SUBJECTIVE: OBJECTIVE: ASSESSMENT AND PLAN:
[2020-03-31 13:40] VITALS: BP 126/69; PULSE 72; TEMP 98.1
--- NOTE | 2020-03-31 13:47 | DS ---
Physical Exam: SUBJECTIVE: Patient seen and examined OBJECTIVE: Vital Signs Period Temp Pulse Resp BP Sys/Wood Pulse Ox Last 24 Hr 98.0 F-98.6 F 60-74 18-20 120-144/69-88 98-98 PHYSICAL EXAM GENERAL: The patient is awake, alert, and fully oriented, in no acute distress. HEAD: Normal with no signs of trauma. EYES: PERRL, extraocular movements intact, sclera anicteric, conjunctiva clear. ENT: Ears normal, nares patent, oropharynx clear without exudates, moist mucous membranes. NECK: Trachea midline, full range of motion, supple. LUNGS: Breath sounds equal, clear to auscultation bilaterally, no wheezes, no crackles, no accessory muscle use. HEART: Regular rate and rhythm, S1, S2 without murmur, rub or gallop. ABDOMEN: Soft, nontender, nondistended, normoactive bowel sounds, no guarding, no rebound, no hepatosplenomegaly, no masses. EXTREMITIES: 2+ pulses, warm, well-perfused, no edema. NEUROLOGICAL: Cranial nerves II through XII grossly intact. Normal speech, gait not observed. PSYCH: Normal mood, normal affect. SKIN: Warm, dry, normal turgor, no rashes or lesions noted. LABS Laboratory Results - last 24 hr 03/30/20 03/30/20 03/31/20 16:12 22:12 06:20 WBC 11.3 H RBC 5.33 H Hgb 11.5 Hct 36.2 MCV 68.0 L MCH 21.6 L MCHC 31.8 L RDW 16.4 H Plt Count 309 MPV 9.3 ESR 16 Sodium Potassium Chloride Carbon Dioxide Anion Gap BUN Creatinine Est GFR (CKD-EPI)AfAm Est GFR (CKD-EPI)NonAf POC Glucometer 170 151 Random Glucose Calcium Phosphorus Magnesium Total Bilirubin AST ALT Alkaline Phosphatase Total Protein Albumin 03/31/20 03/31/20 03/31/20 06:20 06:52 11:14 WBC RBC Hgb Hct MCV MCH MCHC RDW Plt Count MPV ESR Sodium 142 Potassium 4.0 Chloride 111 H Carbon Dioxide 22 Anion Gap 9 BUN 11.7 Creatinine 0.7 Est GFR (CKD-EPI)AfAm 133.81 Est GFR (CKD-EPI)NonAf 115.45 POC Glucometer 110 123 Random Glucose 111 H Calcium 8.9 Phosphorus 3.4 Magnesium 2.4 Total Bilirubin 0.3 AST 6 L ALT 48 Alkaline Phosphatase 86 Total Protein 7.3 Albumin 3.7 HOSPITAL COURSE: Date of Admission:03/30/20 Date of Discharge: 03/31/20 Discharge Summary Problems reviewed: Yes Reason For Visit: RIGHT-SIDED HEADACHE Current Active Problems Right-sided headache (Acute) Condition: Improved - Instructions Diet, Activity, Other Instructions: You presented to the hospital due to a headache. Imaging was performed which did not reveal any acute abnormalities. Please take the following medications as prescribed Sumatriptan 25 mg once per day as needed for migraine headache Topiramate 50 mg TWICE per Day as needed Prednisone 40 mg for THREE more days starting tomorrow Fioricet 1-2 tablets every 4 hours as needed for headache Ferrous Sulfate 325 mg TWICE a day for your anemia Please follow up with the Neurologist, Dr Cheatham in 1 week. Please follow up with the SKETCH MAKER physician as you were found to be anemic and it is possible that you may have abnormal vaginal bleeding Please follow up with the Security Sales Manager as well as you may be losing blood through your GI tract. Please follow up with the eye doctor, Dr Arlene Grier in 1 week. Please follow up with the Dispatcher [employer] in 1 week. Please return to the emergency Department immediately if your headache becomes worse, you develop chest pain, shortness of breath, altered vision or any other abnormalities. Referrals: Reid Mazariegos MD [Staff Physician] - 1 Week Arlene Grier MD [Staff Physician] - Luis Christopher MD [Staff Physician] - Miley Dela Cruz MD [Staff Physician] - Josafat Cheatham MD [Staff Physician] - 1 Week Raymon Gorman MD [Staff Physician] - Disposition: HOME - Home Medications Comprehensive Discharge Medication List: Ambulatory Orders Butalb/Acetaminophen/Caffeine [Fioricet Tablet 50-325-40] 1 tab PO Q6H PRN #20 tablet MDD 4 tabs 03/31/20 Ferrous Sulfate [Feosol] 325 mg PO BID #60 tab 03/31/20 Pantoprazole Sodium [Protonix] 40 mg PO DAILY #30 tablet. 03/31/20 Sumatriptan Succinate [Imitrex -] 25 mg NR Q2H PRN #10 tablet 03/31/20 Topiramate [Topamax -] 50 mg PO BID #60 tablet 03/31/20 predniSONE [Deltasone -] 40 mg PO DAILY #3 tablet 03/31/20 - Discharge Referral Referred to [facility] No ATTENDING PHYSICIAN STATEMENT I saw and evaluated the patient. I reviewed the resident's note and discussed the case with the resident. I agree with the resident's findings and plan as documented. SUBJECTIVE: OBJECTIVE: ASSESSMENT AND PLAN:
[2020-03-31] MEDS: ACETAMINOPHEN/CAFFEINE/BUTALBITAL 1 TAB PO PRN (15:47)
--- NOTE | 2020-03-31 17:06 | PN ---
Teaching Attending Note Name of Resident: Davon Pinon ATTENDING PHYSICIAN STATEMENT I saw and evaluated the patient. I reviewed the resident's note and discussed the case with the resident. I agree with the resident's findings and plan as documented. SUBJECTIVE: R sided headache and temporal tenderness much improved. No fever/chills. OBJECTIVE: Afebrile, Hemodynamically Stable. Last Vital Signs Temp Pulse Resp BP Pulse Ox 98.1 F 72 18 126/69 98 03/31/20 13:39 03/31/20 13:39 03/31/20 13:39 03/31/20 13:39 03/31/20 09:00 HEENT - Atraumatic, normocephalic. Heart - S1, S2, RRR Lungs - clear to auscultation Abdomen - soft, non-tender. Bowel Sounds normal. Extremities - no edema, no calf tenderness. Neuro - AAO x 3. ANGELIKA. Tone/Power normal all extremities. Tender R temporal region. Laboratory Results - last 24 hr 03/30/20 03/30/20 03/31/20 06:05 22:12 06:20 WBC 11.3 H RBC 5.33 H Hgb 11.5 Hct 36.2 MCV 68.0 L MCH 21.6 L MCHC 31.8 L RDW 16.4 H Plt Count 309 MPV 9.3 ESR 16 Sodium Potassium Chloride Carbon Dioxide Anion Gap BUN Creatinine Est GFR (CKD-EPI)AfAm Est GFR (CKD-EPI)NonAf POC Glucometer 151 Random Glucose Calcium Phosphorus Magnesium Total Bilirubin AST ALT Alkaline Phosphatase Total Protein Albumin COVID-19 (GRISELDA) Not detected 03/31/20 03/31/20 03/31/20 06:20 06:52 11:14 WBC RBC Hgb Hct MCV MCH MCHC RDW Plt Count MPV ESR Sodium 142 Potassium 4.0 Chloride 111 H Carbon Dioxide 22 Anion Gap 9 BUN 11.7 Creatinine 0.7 Est GFR (CKD-EPI)AfAm 133.81 Est GFR (CKD-EPI)NonAf 115.45 POC Glucometer 110 123 Random Glucose 111 H Calcium 8.9 Phosphorus 3.4 Magnesium 2.4 Total Bilirubin 0.3 AST 6 L ALT 48 Alkaline Phosphatase 86 Total Protein 7.3 Albumin 3.7 COVID-19 (GRISELDA) Discharge Medications Medication Instructions Recorded Butalb/Acetaminophen/Caffeine 1 tab PO Q6H PRN #20 tablet MDD 4 03/31/20 [Fioricet Tablet 50-325-40] tabs Ferrous Sulfate [Feosol] 325 mg PO BID #60 tab 03/31/20 Pantoprazole Sodium [Protonix] 40 mg PO DAILY #30 tablet. 03/31/20 Sumatriptan Succinate [Imitrex -] 25 mg NR Q2H PRN #10 tablet 03/31/20 Topiramate [Topamax -] 50 mg PO BID #60 tablet 03/31/20 predniSONE [Deltasone -] 40 mg PO DAILY #3 tablet 03/31/20 ASSESSMENT/PLAN: 30 year old female with history of gestational DM, prior ectopic requiring laparotomy, presents with 3-4 day history of R sided headache, R temporal tenderness radiating to back of her head down her neck. CT Head - no acute intracranial findings. POCUS Orbit US normal as per ED provider. MRI - no acute findings. 1. Headache - Migraine versus temporal Arteritis. Migraine more likely given absence of inflammatory markers. CRP 0.3, ESR 18 Neuro evaluated - recommends Sumatriptan PRN, Fioricet PRN, Topiramate BID. Rheumatology consulted for opinion regarding possible temporal arteritis - unlikely - to cpomplete 5 day course of Prednisone with Rheumatology out-patient follow up. Lyme Ab, PILY pending - can follow results with Rheum as out-patient. 2. Hx of gestational Diabetes, A1c 5.9. Novolog as per sliding scale. Not on anti-diabetic meds. 3. Iron deficiency - MCV 67.9. Iron Sat 11%, Ferritin 45. No evidence of acute blood loss. Iron supplementation. 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 Medically and Neurologically stable for discharge. Discussed with Dr. Cheatham. for Neuro out-patient follow up.
--- NOTE | 2020-04-01 14:17 | EKG ---
Test Reason : Blood Pressure : / mmHG Vent. Rate : 070 BPM Atrial Rate : 070 BPM P-R Int : 176 ms QRS Dur : 100 ms QT Int : 396 ms P-R-T Axes : 041 038 024 degrees QTc Int : 427 ms NORMAL SINUS RHYTHM NORMAL ECG NO PREVIOUS ECGS AVAILABLE Confirmed by ANGELINA CORNELL MD ([id number]) on 04/01/2020 2:17:37 PM Referred By: Confirmed By:ANGELINA CORNELL MD
== END 2020-03-31 16:55 | disposition home or self-care (01) | DRG 54 ==
LOC: JER 21:58 → JERBED 03-30 05:24 → J7W 03-30 13:38
PROVIDERS: ADMIT Internal Medicine
DX: G43.909 Migraine, unspecified, not intractable, without status migrainosus (principal); G44.89 Other headache syndrome; H53.141 Visual discomfort, right eye; J34.89 Other specified disorders of nose and nasal sinuses; H53.8 Other visual disturbances; I73.9 Peripheral vascular disease, unspecified; D50.9 Iron deficiency anemia, unspecified; Z86.32 Personal history of gestational diabetes; Z87.59 Personal history of other complications of pregnancy, childbirth and the puerperium
CPT/HCPCS: 36415; 70450-TC; 70551-TC; 71045-TC-FY; 76512; 80053; 82728; 82962; 83036; 83540; 83550; 83735; 84100; 84703; 85025; 85027; 85610; 85651; 85730; 86038; 86140; 86618; 93005; 93010; 99285-25; J0131; U0003

== ENCOUNTER 2023-07-03 10:41 | Emergency (ER) | payer OTHER ==
[2023-07-03 10:55] VITALS: BP 159/94; PULSE 77; RESP 17; TEMP 97.4; BMI 28.0
[2023-07-03] MEDS ORDERED: SODIUM CHLORIDE 0.9% 500 ML INFUS.BAG IV ONE (11:54)
[2023-07-03] MEDS ORDERED: ACETAMINOPHEN 1000 MG/100 ML BAG IVPB ONE (11:54)
[2023-07-03] MEDS ORDERED: METOCLOPRAMIDE HCL INJECTION 10 MG/2 ML VIAL IVPB ONE (11:54)
[2023-07-03] MEDS ORDERED: METOCLOPRAMIDE HCL INJECTION 10 MG/2 ML VIAL ONE (12:07)
[2023-07-03] MEDS ORDERED: ACETAMINOPHEN INJECTION 100 ML IVPB ONE (12:07)
[2023-07-03 12:30] LABS: BASO % 0.5 % (0-2.0); EOS % 1.7 % (0-4.5); HEMATOCRIT 35.8 % (32.4-45.2); HEMOGLOBIN 11.4 GM/dL (10.7-15.3); LYMPH % 32.1 % (8-40); MCH 21.6 pg (25.7-33.7); MEAN CELL VOLUME 67.6 fl (80-96); MEAN PLT VOLUME 8.5 fl (7.5-11.1); MONO % 5.6 % (3.8-10.2); NEUT % 60.1 % (42.8-82.8); PLATELET COUNT 281 10^3/uL (134-434); RBC 5.29 M/mm3 (3.60-5.2); RDW 15.5 % (11.6-15.6); WHITE BLOOD COUNT 6.8 K/mm3 (4.0-10.0)
[2023-07-03 12:46] LABS: POTASSIUM 4.2 mmol/L (3.5-5.1)
[2023-07-03 12:48] LABS: CALCIUM 8.9 mg/dL (8.5-10.1)
[2023-07-03 12:49] LABS: ALBUMIN 3.6 g/dl (3.4-5.0)
[2023-07-03 12:52] LABS: BILIRUBIN,TOTAL 0.2 mg/dL (0.2-1); CREATININE 0.6 mg/dL (0.55-1.3)
[2023-07-03 12:53] LABS: TOT PROT 7.3 g/dl (6.4-8.2)
[2023-07-03] MEDS ORDERED: KETOROLAC TROMETHAMINE 15 MG/ML VIAL IVPUSH ONE (13:27)
[2023-07-03 14:12] LABS: ANISOCYTOSIS 2+; MACROCYTOSIS 0
== END 2023-07-03 16:43 | disposition home or self-care (01) ==
LOC: JER 10:41
PROC: 3E033NZ Introduction of Analgesics, Hypnotics, Sedatives into Peripheral Vein, Percutaneous Approach (ICD-10-PCS; principal; 2023-07-03)
PROC: 3E0333Z Introduction of Anti-inflammatory into Peripheral Vein, Percutaneous Approach (ICD-10-PCS; 2023-07-03)
PROC: 3E033GC Introduction of Other Therapeutic Substance into Peripheral Vein, Percutaneous Approach (ICD-10-PCS; 2023-07-03)
DX: R42 Dizziness and giddiness (principal); G43.909 Migraine, unspecified, not intractable, without status migrainosus; Z20.822 Contact with and (suspected) exposure to COVID-19
CPT/HCPCS: 0241U-QW; 36415; 70450-TC; 80053; 84703; 85025; 93005; 93010; 99285-25